=== PATIENT | male | born 1950 | race Caucasian/White ===

== ENCOUNTER → 2018-12-06 | Outpatient (CLI) | payer OTHER ==
[~2018-12-06] MED LIST: ALPRAZOLAM; AMBIEN; ASPIRIN; AVAPRO300 MG; AVODART0.5 MG; AZITHROMYCIN 2250 MG PO; CARDURA4 MG; CIPROFLOXACIN500 M1 PO; CLONIDINE; CRESTOR10 MG PO; DIABETA; DIABETA 5MG TABL5 MG; GABAPENTIN; GLUMETZA1000; HYDROCHLOROTHIA25 M2; LABETALOL HCL300 MG; LANTUS; LEXAPRO20 MG PO; LOSARTAN POTASS50 MG; LOW DOSE ASPIRI81 M1; METFORMIN; NEURONTIN600 MG; PAROXETINE HCL20 MG; PERCOCET 5-3251 EACH PO; PROPRANOLOL 4040 M1; VYTORIN 10-401 EACH; XANAX 0.25 MG0.25 MG; ZOCOR 10 MG TAB10 MG; [UNRECOGNIZED DRUG - REMARK]
== END ==
LOC: M.ULTRA 12:46
DX: M77.52 Other enthesopathy of left foot and ankle (principal); R60.0 Localized edema; M79.662 Pain in left lower leg; M79.89 Other specified soft tissue disorders; R09.89 Other specified symptoms and signs involving the circulatory and respiratory systems; R29.898 Other symptoms and signs involving the musculoskeletal system

== ENCOUNTER → 2019-07-30 | Outpatient (CLI) | payer MEDICARE | LOC: M.RAD 12:27 | DX: M19.011 Primary osteoarthritis, right shoulder (principal); M25.512 Pain in left shoulder; M79.632 Pain in left forearm; I51.7 Cardiomegaly; J90 Pleural effusion, not elsewhere classified; J18.8 Other pneumonia, unspecified organism; M79.672 Pain in left foot ==

== ENCOUNTER → 2019-08-21 | Outpatient (CLI) | payer OTHER ==
[2019-08-21 16:12] LABS: ABSOLUTE BASOPHILS 0.1 thou/uL (0.0-0.2); ABSOLUTE EOSINOPHILS 0.1 thou/uL (0.0-0.7); ABSOLUTE LYMPHOCYTES 1.8 thou/uL (0.8-5.3); ABSOLUTE MONOCYTES 0.4 thou/uL (0.0-1.2); ABSOLUTE NEUTROPHILS 2.6 thou/uL (1.6-8.1); BASOPHILS 1.3 %; EOSINOPHILS 2.5 %; HEMATOCRIT 33.3 % (42.0-52.0); HEMOGLOBIN 11.5 gm/dL (14.0-18.0); LYMPHOCYTES 35.9 %; MCHC 34.5 g/dL (28.0-37.0); MPV 10.2 fl. (7.2-11.1); NUCLEATED RBCS 0 /100WBC; PLATELET COUNT* 133 thou/uL (150-400); POLYS 52.3 %; RBC 3.82 mil/uL (4.50-6.00); RDW-CV 14.4 % (10.5-14.5); WBC 4.9 thou/uL (4.0-11.0)
[2019-08-21 16:20] LABS: CALCIUM 7.9 mg/dL (8.5-10.1); CREATININE 1.8 mg/dL (0.6-1.3); POTASSIUM 4.2 mmol/L (3.5-5.1)
== END ==
LOC: M.LAB 15:12
PROVIDERS: Family Medicine
DX: J18.9 Pneumonia, unspecified organism (principal); D64.9 Anemia, unspecified; N28.9 Disorder of kidney and ureter, unspecified

== ENCOUNTER 2019-11-28 13:39 | Inpatient (IN) | payer OTHER ==
[~2019-11-28] VITALS: Ht 175.3 cm; Wt 103.2 kg
[2019-11-28 13:46] VITALS: BP 133/59
[2019-11-28 14:41] LABS: ABSOLUTE BASOPHILS 0.1 thou/uL (0.0-0.2); ABSOLUTE EOSINOPHILS 0.3 thou/uL (0.0-0.7); ABSOLUTE LYMPHOCYTES 1.2 thou/uL (0.8-5.3); ABSOLUTE MONOCYTES 0.6 thou/uL (0.0-1.2); ABSOLUTE NEUTROPHILS 3.7 thou/uL (1.6-8.1); BASOPHILS 1.2 %; EOSINOPHILS 4.5 %; HEMATOCRIT 25.8 % (42.0-52.0); HEMOGLOBIN 8.9 gm/dL (14.0-18.0); LYMPHOCYTES 21.2 %; MCH 29.7 pg (26.0-34.0); MCHC 34.7 g/dL (28.0-37.0); MCV 85.6 fL (80.0-100.0); NUCLEATED RBCS 0 /100WBC; PLATELET COUNT* 222 thou/uL (150-400); POLYS 63.1 %; RBC 3.01 mil/uL (4.50-6.00); RDW-CV 14.4 % (10.5-14.5); WBC 5.9 thou/uL (4.0-11.0)
[2019-11-28 14:43] LABS: CALCIUM 8.1 mg/dL (8.5-10.1); CREATININE 2.7 mg/dL (0.6-1.3)
[2019-11-28 14:48] LABS: INR 1.1; PROTIME 11.3 Seconds (9.20-11.50)
[2019-11-28 14:50] LABS: URINE BILIRUBIN NEGATIVE (Negative); URINE BLOOD NEGATIVE (Negative); URINE CLARITY CLEAR; URINE COLOR YELLOW; URINE GLUCOSE-RANDOM NEGATIVE (Negative); URINE KETONES NEGATIVE (Negative); URINE LEUKOCYTES-REFLEX NEGATIVE (Negative); URINE NITRITE-REFLEX NEGATIVE (Negative); URINE PROTEIN 1+ (Negative); URINE SPECIFIC GRAVITY 1.025 (1.005-1.030); URINE UROBILINOGEN 0.2 E.U./dl (0.2-1.0)
[2019-11-28 14:54] LABS: ALBUMIN 3.3 g/dL (3.4-5.0); TOTAL BILIRUBIN 0.3 mg/dL (<0.1-1.0)
[2019-11-28 14:57] LABS: AMP/METHAMP Negative (Negative); BARBITURATES POSITIVE (Negative); BENZODIAZEPINES Negative (Negative); COCAINE Negative (Negative); METHADONE Negative (Negative); OPIATES Negative (Negative); PCP Negative (Negative); THC Negative (Negative)
[2019-11-28] MEDS ORDERED: CELEXA40 MG PO (15:15)
[2019-11-28] MEDS ORDERED: PLAVIX 75 MG TA75 MG PO (15:15)
[2019-11-28] MEDS ORDERED: HYTRIN 2MG CAPSU2 M1 PO (15:16)
[2019-11-28] MEDS ORDERED: DESYREL150 MG PO (15:16)
[2019-11-28] MEDS ORDERED: DYMISTA NASAL S23 GM NASAL (15:18)
[2019-11-28] MEDS ORDERED: LEVEMIR FL100 UNIT/2 SUBQ (15:18)
[2019-11-28] MEDS ORDERED: SPIRONOLACTONE25 MG PO (15:19)
[2019-11-28] MEDS ORDERED: VITAMIN D325 MC5 PO (15:19)
--- NOTE | 2019-11-28 15:19 | EKG ---
[place] [address] ELECTROCARDIOGRAM REPORT Name: DAIANA ROBERSON Room: [facility]#: [id number] Admission: 11/28/19 Attend Phys: Discharge: Date of : 52 Date of Service: 11/28/19 1349 Report #: [id number] THIS REPORT FOR: //name// [facility] ED Test Date: 2019-11-28 Test Time: 13:49:13 Pat Name: DAIANA ROBERSON Department: Room: Gender: M White Sourer: LISA : 1950 Requested By: Kinga Nunez Order Number: [id number] MD: Andrew Valiente Measurements Intervals [place] Rate: 75 P: 68 MO: 152 QRS: 4 QRSD: 94 T: 91 QT: 447 QTc: 500 Interpretive Statements Sinus rhythm Multiple ventricular premature complexes Borderline low voltage, extremity leads Nonspecific T abnormalities, lateral leads Borderline prolonged QT interval Compared to ECG 07/08/2011 14:31:00 Ventricular premature complex(es) now present T-wave abnormality now present Electronically Signed On 11-28-2019 15:17:40 CDT by Andrew Valiente [email or web address] <ELECTRONICALLY SIGNED> By: Andrew Valiente MD, [facility] 11/28/19 1517 1349 1349 Andrew Valiente MD, [facility] /EPI
[2019-11-28] MEDS ORDERED: PRIMIDONE 250M250 MG PO (15:20)
[2019-11-28] MEDS ORDERED: NOVOLOG FL100 UNIT/M SUBQ (15:20)
[2019-11-28] MEDS ORDERED: MINOXIDIL10 MG PO (15:21)
[2019-11-28] MEDS ORDERED: ZESTRIL20 MG PO (15:21)
[2019-11-28] MEDS ORDERED: KEPPRA XR750 MG PO (15:22)
[2019-11-28] MEDS ORDERED: FUROSEMIDE 40 M40 MG PO (15:22)
[2019-11-28] MEDS ORDERED: NEURONTIN 400M400 M2 PO (15:22)
[2019-11-28] MEDS ORDERED: CARVEDILOL25 MG PO (15:22)
[2019-11-28] MEDS ORDERED: CLONAZEPAM 0.50.5 M1 PO (15:22)
[2019-11-28] MEDS ORDERED: DRIZALMA SPRINK30 MG PO (15:23)
[2019-11-28] MEDS ORDERED: CRESTOR40 MG PO (15:23)
[2019-11-28] MEDS ORDERED: ASA81BEC PO (15:23)
[2019-11-28 20:00] VITALS: BP 163/69
--- NOTE | 2019-11-28 20:04 | NUR ---
SPOKE WITH DR ROBLES; PER DR ROBLES SHE ORDERED FOR COVID TESTING TO BE CANCELLED; PT TO BE ADMITTED TO [facility]
[2019-11-28 20:16] VITALS: BP 146/66
[2019-11-28] MEDS ORDERED: TRAZODONE HCL100 MG PO (21:48)
[2019-11-28 22:04] VITALS: BP 170/58
[2019-11-29 00:14] VITALS: BP 154/42
[2019-11-29 04:17] VITALS: BP 116/41
[2019-11-29 05:08] LABS: GLYCOHEMOGLOBIN (HGB A1C) 6.5 % (4.8-5.6)
[2019-11-29 05:19] LABS: HEMATOCRIT 25.3 % (42.0-52.0); HEMOGLOBIN 8.8 gm/dL (14.0-18.0); MCH 29.9 pg (26.0-34.0); MCV 85.5 fL (80.0-100.0); RBC 2.95 mil/uL (4.50-6.00); RDW-CV 14.2 % (10.5-14.5); WBC 5.6 thou/uL (4.0-11.0)
[2019-11-29 05:23] LABS: CALCIUM 7.8 mg/dL (8.5-10.1); CREATININE 2.5 mg/dL (0.6-1.3); POTASSIUM 3.6 mmol/L (3.5-5.1)
[2019-11-29 05:27] LABS: ALBUMIN 2.7 g/dL (3.4-5.0); MAGNESIUM 2.1 mg/dL (1.8-2.4); TOTAL BILIRUBIN 0.2 mg/dL (<0.1-1.0)
--- NOTE | 2019-11-29 05:50 | NUR ---
patient denies pain and discomfort. has some shortness of air on exertion and for that reason, remains on 2l o2 nc. 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 up with assist x1 to BSC. call light within reach
[2019-11-29 08:00] VITALS: BP 128/58
--- NOTE | 2019-11-29 11:26 | 2DMMODE ---
[place] [address] 2 D/M-MODE ECHOCARDIOGRAM Name: DAIANA ROBERSON Room: [address] IN .R.#: [id number] Admission: 11/28/19 Attend Phys: Nereyda Fuentes, Discharge: Date of : 52 Date of Service: 11/29/19 1124 Report #: [id number] THIS REPORT FOR: cc: Romi Diaz MD, Katrina MD Holkins,Andrew Denney MD [facility] ~ APPROVED REPORT Study performed: 11/28/2019 16:36:11 EXAM: Comprehensive 2D, Doppler, and color-flow Echocardiogram Patient Location: In-Patient Room #: er BSA: 2.07 HR: 90 bpm BP: 141/58 mmHg Rhythm: NSR Indications Pleural Effusion 2D Dimensions IVSd: 15.16 (7-11mm) LVOT Diam: 20.25 (18-24mm) LVDd: 52.91 mm PWd: 11.99 (7-11mm) Ascending Ao: 31.20 (22-36mm) LVDs: 32.49 (25-40mm) Aortic Root: 31.03 mm Volumes Left Atrial Volume (Systole) LA ESV Index: 45.00 mL/m2 Aortic Valve AoV Peak Latrell.: 1.71 m/s AO Peak Gr.: 11.71 mmHg LVOT Max P.00 mmHg AO Mean Gr.: 6.50 mmHg LVOT Mean P.61 mmHg LVOT Max V: 0.87 m/s AO V2 VTI: 39.49 cm LVOT Mean V: 0.59 m/s PENNY (VTI): 1.81 cm2 LVOT V1 VTI: 22.18 cm AI [place]: 4.70 m/s2 AI PHT: 251.77 [place] [address] 2 D/M-MODE ECHOCARDIOGRAM Name: DAIANA ROBERSON Room: [address] IN .R.#: [id number] Admission: 11/28/19 Attend Phys: Nereyda Fuentes, Discharge: Date of : 52 Date of Service: 11/29/19 1124 Report #: [id number] E/A Ratio: 1.43 MV Decel. Time: 151.25 ms MV E Max Latrell.: 1.23 m/s MV PHT: 43.86 ms MVA (PHT): 5.02 cm2 TDI E/Lateral E': 15.38 E/Medial E': 17.57 Medial E' Latrell.: 0.07 m/s Lateral E' Latrell.: 0.08 m/s Pulmonary Valve PV Peak Latrell.: 0.84 m/s PV Peak Gr.: 2.82 mmHg Tricuspid Valve RAP Estimate: 5.00 mmHg TR Peak Gr.: 42.49 mmHg RVSP: 47.00 mmHg PA Pressure: 47.00 mmHg Left Ventricle The left ventricle is normal size. There is normal LV segmental wall motion. Mild concentric left ventricular hypertrophy. Left ventricular systolic function is normal. The left ventricular ejection fraction is within the normal range. LVEF is 55%. The left ventricular diastolic function is normal. Right Ventricle The right ventricle is normal size. The right ventricular systolic function is normal. Atria Left atrium is moderately dilated. The right atrium size is normal. Aortic Valve Mild aortic valve sclerosis. Moderate aortic regurgitation. No hemodynamically significant valvular aortic stenosis. Mitral Valve The mitral valve is normal in structure. Moderate mitral regurgitation. No evidence of mitral valve stenosis. Tricuspid Valve The tricuspid valve is normal in structure. Mild tricuspid regurgitation. [place] [address] 2 D/M-MODE ECHOCARDIOGRAM Name: DAIANA ROBERSON Ana Room: [address] IN [facility]#: [id number] Admission: 11/28/19 Attend Phys: Nereyda Fuentes, Discharge: Date of : 52 Date of Service: 11/29/19 1124 Report #: [id number] Pulmonic Valve The pulmonary valve is normal in structure. Trace pulmonic regurgitation. Great Vessels The aortic root is normal in size. IVC is normal in size and collapses >50% with inspiration. Pericardium Mild circumferential pericardial effusion. <Conclusion> The left ventricle is normal size. Mild concentric left ventricular hypertrophy. Left ventricular systolic function is normal. The left ventricular ejection fraction is within the normal range. LVEF is 55%. The left ventricular diastolic function is normal. The right ventricle is normal size. Left atrium is moderately dilated. The right atrium size is normal. Mild aortic valve sclerosis. Moderate aortic regurgitation. No hemodynamically significant valvular aortic stenosis. The mitral valve is normal in structure. Moderate mitral regurgitation. No evidence of mitral valve stenosis. The tricuspid valve is normal in structure. Mild tricuspid regurgitation. Moderate pulmonary hypertension. IVC is normal in size and collapses >50% with inspiration. Mild circumferential pericardial effusion. There is normal LV segmental wall motion. <ELECTRONICALLY SIGNED> By: Andrew Valiente MD, FACC 11/29/19 1124 1124 1124 Andrew Valiente MD, FACC /INF
--- NOTE | 2019-11-29 12:55 | NUR ---
ASSUMED PT CARE AT 0730, PT RESTING IN BED, SATTING 94% ON 1.5L, TRACING SR W/ PVC'S ON THE SPINNING SUPERVISOR AND HAD NO C/O PAIN OR SHORTNESS OF BREATH. PT COMMUNICATES UNDERSTANDING OF CARE PLAN AND MEDS BUT SOMETIMES FORGETS TEACHING. PT HAD RT BKA AND HAS PROSTHETIC IN THE ROOM, HE IS UP W/ ASSIST TO THE BEDSIDE COMODE. PT GOAL IS TO GET A SPUTUM SAMPLE COLLECTED, INCREASE ACTIVITY AND DECREASE EXCESS FLUID VOLUME. AM ASSESSMENT CHARTED, MEDS PER SEP, HOURLY ROUNDING OBSERVED, BED IN LOW POSITION, BED ALARM ON, CALL LIGHT W/IN REACH, WILL CONTINUE POC.
[2019-11-29 13:12] VITALS: BP 126/44
[2019-11-29 16:44] VITALS: BP 116/39
--- NOTE | 2019-11-29 17:58 | NUR ---
NO ACUTE CHANGES THROUGHOUT SHIFT, PT WORKED W/ PT TODAY AND GOT UP TO CHAIR. NEURO CONSULTED FOR AMS AND MRI ORDERED BY DR. ROBLES AND CONFIRMED BY DR. LEDESMA. PT'S SON AND DPOA, DEREK, CALLED FOR MRI, CONSENT GIVEN BY HIM. BROWN CATHETER W/ TEMP PROBE REMOVED PER MRI PROTOCOL AND NEW 16 THAI BROWN CATHETER PLACED UPON RETURN TO THE UNIT. CATHETER IS IN PLACE FOR URINARY RTN. SON, DEREK, CONSULTED ABOUT PT HOME MEDS. DEREK STATES PT "BECOMES ANGRY, AGGRESSIVE AND SUICIDAL IF CYMBALTA IS DC'D". DEREK ALSO STATES HE IS BRINGING UP 2 HOME MEDS PER PT. HOURLY ROUNDING OBSERVED, BED IN LOW POSITION, BED ALARM ON, CALL LIGHT W/IN REACH, MED PER SEP, WILL CONTINUE POC
[2019-11-29 19:50] VITALS: BP 125/69
[2019-11-30 00:33] VITALS: BP 177/60
[2019-11-30 04:15] LABS: ABSOLUTE BASOPHILS 0.1 thou/uL (0.0-0.2); ABSOLUTE EOSINOPHILS 0.2 thou/uL (0.0-0.7); ABSOLUTE LYMPHOCYTES 1.7 thou/uL (0.8-5.3); ABSOLUTE MONOCYTES 0.6 thou/uL (0.0-1.2); BASOPHILS 1.1 %; EOSINOPHILS 3.7 %; HEMATOCRIT 25.3 % (42.0-52.0); HEMOGLOBIN 8.7 gm/dL (14.0-18.0); MCH 29.7 pg (26.0-34.0); MCHC 34.4 g/dL (28.0-37.0); MCV 86.2 fL (80.0-100.0); MONOCYTES 10.3 %; MPV 9.7 fl. (7.2-11.1); NUCLEATED RBCS 0 /100WBC; PLATELET COUNT* 200 thou/uL (150-400); POLYS 53.9 %; RBC 2.94 mil/uL (4.50-6.00); RDW-CV 14.5 % (10.5-14.5); WBC 5.6 thou/uL (4.0-11.0)
[2019-11-30 04:36] VITALS: BP 136/32
--- NOTE | 2019-11-30 05:50 | NUR ---
VSS. SEE MAR. SEE CHARTING. FALL PRECAUTIONS IN PLACE. HOURLY ROUNDING FOR SAFETY.
[2019-11-30 07:54] VITALS: BP 162/50
[2019-11-30 12:15] VITALS: BP 159/64
--- NOTE | 2019-11-30 14:05 | NUR ---
ASSUMED PT CARE AT 0730, PT RESTING IN BED, SATTING 95% ON 2L, TRACING SR W/ PVC'S ON THE CIRCUIT BREAKER MECHANIC AND C/O CHEST PAIN THAT HE STATES IS FROM COUGHING. HE REQUESTED A BREATHING TREATMENT, RT CONSULTED AND ACCOMPLISHED THIS W/ HIM. BROWN IN PLACE FOR URINARY RTN. PT HAS PROSTHETIC LEG IN ROOM R/T RT BKA. PT GOAL IS TO INCREASE ACTIVITY AND REMAIN FREE FROM FURTHER CHEST PAIN. AM ASSESSMENT CHARTED, MEDS PER MAR, HOURLY ROUNDING OBSERVED, BED IN LOW POSITION, BED ALARM ON, CALL LIGHT W/IN REACH, WILL CONTINUE POC.
[2019-11-30 17:13] VITALS: BP 177/61
--- NOTE | 2019-11-30 18:02 | NUR ---
NO ACUTE CHANGES THROUGHOUT SHIFT, PT CONTINUES TO HAVE BROWN IN PLACE W/ DARK YELLOW URINE DRAINING. PT CONTINUES TO SAT MID 90'S ON 2L AND TRACE SR W/ PVC'S ON THE SYRUP SHED SUPERVISOR. PT PROGRESSING TOWARDS GOALS AND GOT UP TO THE BATHROOM TODAY, NO FURTHER C/O CHEST PAIN. MEDS PER SEP, HOURLY ROUNDING OBSERVED, BED IN LOW POSITION, BED ALARM ON, CALL LIGHT W/IN REACH, WILL CONTINUE POC.
[2019-11-30 20:00] VITALS: BP 158/68
[2019-12-01] VITALS: BP 135/52
[2019-12-01 04:00] VITALS: BP 162/73
--- NOTE | 2019-12-01 04:30 | NUR ---
PT ALERT ORIENTED. PT INAPPROPRIATE AT TIMES. FOELY WITH CLEAR YELLOW. O2 AT 2 LITERS NC. PT TELEMETRY SHOWS SR FREQUENT PACS.
[2019-12-01 08:00] VITALS: BP 188/65
[2019-12-01 11:49] LABS: BE -1.6 mmol/L (-2 to +3); PCO2 43.5 mmHg (35.0-45.0); pH 7.357 (7.340-7.450)
[2019-12-01 11:53] LABS: PO2 57.7 mmHg (75.0-100.0)
[2019-12-01 12:00] VITALS: BP 119/62
--- NOTE | 2019-12-01 15:55 | NUR ---
CM spoke with Pt's son via phone. Pt resides at home with his son. Independent with ADLs, son completes IADLS. Pt has a walker for mobility. Pt had a BKA 1-2 years ago and wears a prothesis. Hx of HH. No hx of SNF. Covid negative. Per Dr, anticipate that Pt will be medically stable to dc later this week, Dr recommending a skilled stay. Son in agreement with skilled at dc, if its needed. CM to continue to try to reach Pt via phone to discuss dispo. Following.
[2019-12-01 16:00] VITALS: BP 147/57
--- NOTE | 2019-12-01 18:52 | NUR ---
VSS, A&OX4 BUT CONFUSED, SR WITH PVCS ON TELE, BROWN CATHETER, RIGHT BKA, UP WITH ONE TO PIVOT TO COMMODE AND CHAIR, HOURLY ROUNDING PERFORMED, POSSESSIONS AND CALL LIGHT WITHIN REACH.
[2019-12-01 19:47] VITALS: BP 176/65
[2019-12-02] VITALS: BP 118/45
[2019-12-02 04:00] VITALS: BP 118/61
--- NOTE | 2019-12-02 05:17 | NUR ---
PATIENT PROGRESSING TOWARDS GOALS: O2 SATURATION MAINTAINED ON 4L O2 NC. PATIENT DENIES PAIN AND DISCOMFORT. UP TO BEDSIDE COMMODE WITH ASSIST X1 AND PROSTHESIS. BROWN REMAINS IN PLACE TO DD. CALL LIGHT WITHIN REACH
[2019-12-02 06:45] LABS: HEMATOCRIT 24.8 % (42.0-52.0); HEMOGLOBIN 8.6 gm/dL (14.0-18.0); MCH 29.8 pg (26.0-34.0); MCHC 34.9 g/dL (28.0-37.0); MCV 85.5 fL (80.0-100.0); MPV 9.9 fl. (7.2-11.1); RBC 2.9 mil/uL (4.50-6.00); RDW-CV 14.4 % (10.5-14.5); WBC 5.1 thou/uL (4.0-11.0)
[2019-12-02 07:02] LABS: ALBUMIN 2.7 g/dL (3.4-5.0); CALCIUM 7.6 mg/dL (8.5-10.1); CREATININE 2.2 mg/dL (0.6-1.3); TOTAL BILIRUBIN 0.3 mg/dL (<0.1-1.0); TOTAL PROTEIN 5.9 g/dL (6.4-8.2)
[2019-12-02 08:00] VITALS: BP 136/53
--- NOTE | 2019-12-02 11:35 | CON ---
[address] [address] CONSULTATION Name: DAIANA ROBERSON Room: [address] IN M.R.#: [id number] Admission: 11/28/19 Attend Phys: Nereyda Fuentes MD Discharge: Date of : 52 Report #: [id number] THIS REPORT FOR: //name// cc: Romi Diaz MD, Katrina MD ~ THIS REPORT FOR: //name// CC: Romi Fuentes DATE OF SERVICE: 12/01/2019 REQUESTING PHYSICIAN: Dr. Fuentes. REASON FOR CONSULTATION: Acute kidney injury on top of the chronic kidney disease. HISTORY OF PRESENT ILLNESS: The patient is a 69-year-old gentleman admitted to the hospital on 11/28/2019 with complaints of altered mental status. The patient has been evaluated by Neurology, saw the patient yesterday. Her assessment was encephalopathy, which is improving and give diagnosis were depression, possible dementia or medications associated with pneumonia and UTI. PAST MEDICAL HISTORY: Significant for: 1. Chronic kidney disease stage 3. 2. History of hypertension. 3. Diabetes mellitus type 2. 4. Recurrent urinary tract infection. 5. Cardiomyopathy. 6. Dementia. FAMILY HISTORY: Noncontributory. SOCIAL HISTORY: Positive for hypertension and diabetes. REVIEW OF SYSTEMS: Unreliable. PHYSICAL EXAMINATION: GENERAL: Awake, but very limited engagement into the conversation. HEENT: Pupils are round. NECK: Supple. LUNGS: Decreased air movements. CARDIOVASCULAR: Regular rate. ABDOMEN: [place], [place] [address] CONSULTATION Name: DAIANA ROBERSON Room: [address] IN M.R.#: [id number] Admission: 11/28/19 Attend Phys: Nereyda Fuentes MD Discharge: Date of : 52 Report #: [id number] LOWER EXTREMITIES: Trace edema. LABORATORY DATA: Revealed hemoglobin of 8.7. Serum sodium 138, potassium 3.6, BUN 42, creatinine 2.5. Those are labs from 11/29/2019, I do not have any labs from yesterday or today. His baseline creatinine is around 1.8, 1.6. Creatinine on admission was 2.7 and on 11/29/2019 it was 2.5. ASSESSMENT: 1. Acute kidney injury likely due to infection process. I think he has pneumonia. 2. Chronic kidney disease stage 3. 3. Dementia. 4. Diabetes mellitus type 2. 5. Hypertension. PLAN: 1. Continue antibiotics per primary team. 2. I would prefer oral hydration and would not give him IV fluids and given the history of congestive heart failure and high level of BNP. We will also check renal ultrasound and labs in the morning. <ELECTRONICALLY SIGNED> By: Anand Patricio MD 12/02/19 1135 1144 [id number] MATEO Alves
[2019-12-02 12:00] VITALS: BP 126/50
--- NOTE | 2019-12-02 15:56 | NUR ---
Per , anticipate dc in 2 days. Pt may still need skilled, CM requested that PT/OT work with Pt to determine dispo. Following.
[2019-12-02 16:00] VITALS: BP 178/67
--- NOTE | 2019-12-02 18:50 | NUR ---
ASSUMED PT CARE REPORT RECEIVED FROM NURSE. PT IS AOX4. ON 2 L NC. DENIES PAIN. BUT COMPLAINS OF SOB WITH EXERTION. LUNG SOUNDS WHEEZY. NEW ORDER FOR LASIX. SEE EMAR. IV ABX GIVEN ORDERED. YANETH. KEVIN IN PLACE. CALL LIGHT AT REACH
[2019-12-02 19:58] VITALS: BP 144/51
[2019-12-02 21:56] LABS: HEMATOCRIT 28.3 % (42.0-52.0); HEMOGLOBIN 9.7 gm/dL (14.0-18.0); MCH 29.8 pg (26.0-34.0); MCHC 34.3 g/dL (28.0-37.0); MCV 86.8 fL (80.0-100.0); MPV 9.1 fl. (7.2-11.1); RBC 3.26 mil/uL (4.50-6.00); RDW-CV 14.5 % (10.5-14.5); WBC 4.8 thou/uL (4.0-11.0)
[2019-12-03] VITALS: BP 135/56
[2019-12-03 04:00] VITALS: BP 163/74
--- NOTE | 2019-12-03 06:48 | NUR ---
RECEIVED REPORT AND ASSUMED CARE OF PATIENT AT 1900. FULL ASSESSMENT COMPLETED CHARTED. VSS. NO ACUTE CHANGES. ALL ROUNDINGS COMPLETED, ALL NEEDS MET. CALL LIGHT AND PERSONAL ITEMS IN REACH.
[2019-12-03 07:58] VITALS: BP 180/71
--- NOTE | 2019-12-03 09:07 | NUR ---
ASSUMED CARE OF PT THIS AM AROUND 07- MICROBIOLOGICAL LABORATORY TECHNICIAN IN PLACE ORDERED, TRACING SR- UPON ASSESSMEN PT NOTED TO BE RESTING IN BED, WATCHING TV- PT A&O X3-4 WITH INTERMITENT CONF/FORGETFULLNESS- BROWN IN PLACE D/D CLEAR FABIANO URINE, CONT OF BOWEL- ASSIST X1 WITH TRANSFERS-VSS, O2 SAT 98% ON 4L VIA NC UPPER LOBES NOTED TO BE CLEAR, CRACKLES TO BASES- DYSPNEA NOTED ON EXERTION- ABD SOFT/ROUND/NO-TENDER, BS X4 QUADS- LAST BM REPORTED 12/02/19-FAIR PO INTAKE NOTED THIS AM WITH BREAKFAST, BS MONITORED ORDERED- IV NOTED TO LEFT FA INTACT, IV ABT INFUSSING PRESCRIBED- R BKA NOTED- LLE 2+ EDEMA- PT DENIES ANY C/O PAIN/DISCOMFORT AT THIS TIME- CALL LIGHT AND PERSONAL BELONGINGS WITH IN REACH- HOURLY ROUNDS IN PLACE R/T SAFETY/NEEDS- ALL NEEDS MET AT THIS TIME-WCTM
[2019-12-03 12:14] VITALS: BP 130/48
--- NOTE | 2019-12-03 15:16 | NUR ---
Per PT, Pt can dc home.
[2019-12-03 16:12] VITALS: BP 161/56
[2019-12-03 21:07] LABS: CALCIUM 7.5 mg/dL (8.5-10.1); POTASSIUM 4.4 mmol/L (3.5-5.1); TOTAL BILIRUBIN 0.2 mg/dL (<0.1-1.0); TOTAL PROTEIN 5.9 g/dL (6.4-8.2)
[2019-12-04] VITALS: BP 140/55
[2019-12-04 04:00] VITALS: BP 130/44
--- NOTE | 2019-12-04 05:43 | NUR ---
RECEIVED REPORT AND ASSUMED CARE OF PT AT 1900. VSS. NO ACUTE CHANGES THROUGHOUT SHIFT. ALL ROUNDINGS COMPLETED, ALL NEEDS MET, FULL ASSESSMENT COMPLETED CHARTED. PT EXPRESSED DESIRE TO BE OUT OF HIS ROOM AND USE HIS WHEELCHAIR IN THE HALLWAY, RN ASSISTED AND MONITORED IN USING WHEELCHAIR IN HALLWAY.
[2019-12-04 05:49] LABS: HEMATOCRIT 25.5 % (42.0-52.0); HEMOGLOBIN 8.7 gm/dL (14.0-18.0); MCH 29.4 pg (26.0-34.0); MCHC 34.1 g/dL (28.0-37.0); MPV 9.5 fl. (7.2-11.1); RBC 2.96 mil/uL (4.50-6.00); RDW-CV 14.8 % (10.5-14.5); WBC 5.2 thou/uL (4.0-11.0)
[2019-12-04 05:58] LABS: CALCIUM 7.7 mg/dL (8.5-10.1); CREATININE 1.8 mg/dL (0.6-1.3)
[2019-12-04 08:00] VITALS: BP 150/46
[2019-12-04 12:00] VITALS: BP 139/49
--- NOTE | 2019-12-04 14:21 | NUR ---
CM spoke with director of rehabilitation and wellness, Pt likely will be an acute rehab candidate, pending PT seeing today. Per , Pt was drowsy today, anticipate that he may be medically stable to dc tomorrow.
[2019-12-04 16:00] VITALS: BP 177/74
--- NOTE | 2019-12-04 18:53 | NUR ---
ASSUMED PT CARE AT 0700, PT A&O X4, VSS, 2LPM VIA NC, SUSTAINABLE DESIGN COORDINATOR TRACING SINUS RHYTHM. UP WITH ASSIST X1, PROSTHETIC LEG, AND WALKER, BROWN PATENT AND DRAINING DARK YELLOW URINE WITH MINIMAL SEDIMENT. ACCUCHECKS AC AND HS, HOURLY ROUNDING COMPLETED.
[2019-12-04 20:00] VITALS: BP 143/77
[2019-12-05] VITALS (8 sets, daily range): BP systolic 143–229; BP diastolic 52–80
--- NOTE | 2019-12-05 05:25 | NUR ---
ASSSUMED PT CARE AT APPROX 1930. PT IS AWAKE AND ORIENTED X4. PT IS TRACING SR ON THE PARTS CLEANER. ASSESSMENT DONE AND CHARTED. PT DENIES PAIN/DISCOMFORT. NO ACUTE CHANGES OVERNIGHT. CALL LIGHT WITHIN REACH. HOURLY ROUNDING DONE FOR PT SAFETY. HIGH FALL PRECAUTIONS IN PLACE.
--- NOTE | 2019-12-05 11:46 | NUR ---
Rehab consulted. Awaiting decision to accept.
[2019-12-05 12:47] LABS: ABSOLUTE BASOPHILS 0.1 thou/uL (0.0-0.2); ABSOLUTE EOSINOPHILS 0.2 thou/uL (0.0-0.7); ABSOLUTE LYMPHOCYTES 1.1 thou/uL (0.8-5.3); ABSOLUTE MONOCYTES 0.5 thou/uL (0.0-1.2); ABSOLUTE NEUTROPHILS 2.6 thou/uL (1.6-8.1); BASOPHILS 1.5 %; EOSINOPHILS 4.9 %; HEMATOCRIT 27.1 % (42.0-52.0); HEMOGLOBIN 9.3 gm/dL (14.0-18.0); MCH 30.1 pg (26.0-34.0); MCHC 34.2 g/dL (28.0-37.0); MONOCYTES 10.9 %; MPV 9.2 fl. (7.2-11.1); NUCLEATED RBCS 0 /100WBC; PLATELET COUNT* 197 thou/uL (150-400); POLYS 57.7 %; RBC 3.08 mil/uL (4.50-6.00); WBC 4.5 thou/uL (4.0-11.0)
[2019-12-05 13:05] LABS: ALBUMIN 2.9 g/dL (3.4-5.0); CREATININE 1.9 mg/dL (0.6-1.3); POTASSIUM 4.3 mmol/L (3.5-5.1); TOTAL BILIRUBIN 0.3 mg/dL (<0.1-1.0); TOTAL PROTEIN 6.4 g/dL (6.4-8.2)
--- NOTE | 2019-12-05 13:20 | NUR ---
Pt in agreement with going to acute rehab, liaison to initiate auth. Son in agreement with POC. Pt medically stable to dc today.
--- NOTE | 2019-12-05 18:21 | NUR ---
PT VSS, A&OX4, IMPULSIVE AND FORGETFUL AT BASELINE, NSR ON TELE, NC@2L, RIGHT BKA, UP WITH ONE- PIVOTS TO CHAIR AND COMMODE WITH MODERATE ASSISTANCE, ACHS-ACCUCHECKS, HOURLY ROUNDING PERFORMED, POSSESSIONS AND CALL LIGHT WITHIN REACH, PATIENT WAITING FOR REHAB INSURANCE AUTHORIZATION, WILL BE ON UNIT UNTIL SUNDAY PENDING INSURANCE AUTH.
[2019-12-06 04:00] VITALS: BP 153/63
--- NOTE | 2019-12-06 05:19 | NUR ---
ASSUMED PT CARE AT APPROX 1930. PT IS AWAKE AND ORIENTED X4. PT IS TRACING SR ON THE TRACTOR EXPERT. PT C/O SOA AT APPROX 2200, spO2 WAS BETWEEN 88-90 ON 2L OF O2, LUNGS DIMINISHED AND COARSE, BP= 229/180, DR MCKEON INFORMED, ORDERS TO GIVE LASIX IV AND HYDRALAZINE IV GIVEN PER SEP, BREATHING TX ADMISINSTERED BY RT. PT VERBALIZED PARTIAL RELIEF AND WAS ABLE TO REST. REPEAT VITAL SIGNS CHARTED. WILL CONTINUE TO MONITOR PT CLOSELY.
--- NOTE | 2019-12-06 05:27 | NUR ---
ASSUMED PT CARE AT APPROX 1930. PT IS AWAKE AND ORIENTED X4. PT IS TRACING SR ON THE DIRECTOR OF GOVERNMENT SALES. PT C/O SOA AT APPROX 2200, spO2 WAS BETWEEN 88-90 ON 2L OF O2, LUNGS DIMINISHED AND COARSE, BP= 229/80, DR MCKEON INFORMED, ORDERS TO GIVE LASIX IV AND HYDRALAZINE IV GIVEN PER SEP, BREATHING TX ADMISINSTERED BY RT. PT VERBALIZED PARTIAL RELIEF AND WAS ABLE TO REST. REPEAT VITAL SIGNS CHARTED. WILL CONTINUE TO MONITOR PT CLOSELY.
[2019-12-06 08:00] VITALS: BP 182/75
[2019-12-06 10:53] LABS: CALCIUM 7.5 mg/dL (8.5-10.1); CREATININE 1.9 mg/dL (0.6-1.3); POTASSIUM 4.3 mmol/L (3.5-5.1)
[2019-12-06 12:00] VITALS: BP 149/64
--- NOTE | 2019-12-06 12:42 | NUR ---
Nutrition: Pt admitted with toxic encephalopathy. Seen for LOS. H/o HTN, OBE, CKD III, TOMASA, DMII. Pt asleep at time of visit, spoke with RN. Pt is on Chopped diet d/t pt's request b/c he has difficulty with meats and "tougher" foods. Labs: BG 17, A1c 6.5%, BUN 23, cr 1.9, alb 2.9, prealb 22.6. RX noted. Lasix today. Some edema in LLE. Wt was 214#, today is 224# bed wt. Continue with chopped diet, GOAL >75% of meals consumed. No other nutrition interventions needed at this time. Consider mild risk.
[2019-12-06 16:00] VITALS: BP 137/47
--- NOTE | 2019-12-06 19:30 | NUR ---
RECEIVED REPORT FROM MEI MOLINA. ASSUMED CARE OF PT AROUND 0730. PT A&O X4. FLAT AFFECT. SLEPT A LOT THIS SHIFT DESPITE ENCOURAGEMENT TO GET UP TO BEDSIDE CHAIR. AM ASSESSMENT AND VITALS COMPLETED CHARTED. RADIATION ONCOLOGIST IN PLACE CHARTED. MEDS PER EMAR. BROWN IN PLACE TO DD. APPETITE FAIR. SPOKE TO SON DEREK MULTIPLE TIMES THIS SHIFT, UPDATES GIVEN. PT ENCOURAGED TO USE IS AND FLUTTER. PT REMAINS ON 2L PER NC. PT CURRENTLY RESTING IN BED. CALL LIGHT IS WITHIN REACH. HOURLY ROUNDING PERFORMED. FALL PRECAUTIONS IN PLACE.
[2019-12-06 20:00] VITALS: BP 170/60
[2019-12-07] VITALS: BP 180/83
[2019-12-07 04:00] VITALS: BP 160/58
--- NOTE | 2019-12-07 05:28 | NUR ---
ASSUMED PT CARE AT APPROX 1930. PT IS AWAKE AND ORIENTED X4. PT IS TRACING SR ON THE ELECTRIC DRILL OPERATOR. ASSESSMENT DONE AND CHARTED. NO ACUTE CHANGES OVERNIGHT.NO DESATURATIONS NOTED ON 2L OF O2/NC. PT IS NOT IN RESPIRATORY DISTRESS, DENIES PAIN. CALL LIGHT WITHIN REACH. HIGH FALL PRECAUTIONS IN PLACE. HOURLY ROUNDING DONE FOR PT SAFETY.
[2019-12-07 05:56] LABS: CALCIUM 7.6 mg/dL (8.5-10.1); CREATININE 1.7 mg/dL (0.6-1.3); MAGNESIUM 2.1 mg/dL (1.8-2.4); POTASSIUM 4.7 mmol/L (3.5-5.1)
[2019-12-07 07:30] VITALS: BP 148/51
[2019-12-07 12:00] VITALS: BP 157/64
[2019-12-07 16:00] VITALS: BP 165/75
--- NOTE | 2019-12-07 18:00 | NUR ---
RECEIVED REPORT FROM DONTE MOLINA. ASSUMED CARE OF PT AROUND 0715. PT A&O X4. BLOW PIT HELPER IN PLACE TRACING CHARTED. AM ASSESSMENT AND VITALS COMPLETED CHARTED. MEDS PER EMAR. PT ABLE TO GET UP TO BEDSIDE CHAIR THIS SHIFT AND WAS ABLE TO AMBULATE TO BATHROOM WITH ASSITANCE X1 WITH WALKER AND PROSTHESIS. PT APPEARED IN BETTER SPIRITS TODAY THAN YESTERDAY. MORE OUTPUT THAN INPUT. BROWN IN PLACE TO DD, URINE YELLOW. PT DENIED PAIN THIS SHIFT. PT CURRENTLY RESTING IN BED WATCHING TV. CALL LIGHT IS WITHIN REACH. FALL PRECAUTIONS IN PLACE. HOURLY ROUNDING PERFORMED. SON CALLED AND UPDATE WAS GIVEN.
[2019-12-07 20:00] VITALS: BP 160/58
[2019-12-08] VITALS: BP 150/60
[2019-12-08 04:00] VITALS: BP 164/58
--- NOTE | 2019-12-08 04:48 | NUR ---
ASSUMED PT CARE AT APPROX 1930. PT IS AWAKE AND ORIENTED X4. PT IS TRACING SR ON THE POLLUTION CONTROL CHEMIST. PT DENIES PAIN/DISCOMFORT. NO DESATURATIONS NOTED ON 2L OF O2/NC. NO ACUTE CHANGES OVERNIGHT. CALL LIGHT WITHIN REACH. HOURLY ROUNDING DONE FOR PT SAFETY.
[2019-12-08 07:25] LABS: CALCIUM 7.9 mg/dL (8.5-10.1); CREATININE 1.9 mg/dL (0.6-1.3); MAGNESIUM 2.4 mg/dL (1.8-2.4); POTASSIUM 4.4 mmol/L (3.5-5.1)
[2019-12-08 08:01] VITALS: BP 146/49
--- NOTE | 2019-12-08 09:26 | NUR ---
ASSUMED CARE OF PT THIS AM AROUND 0715- SOLAR ENERGY SALES SPECIALIST IN PLACE ORDERED, TRACING SR- UPON ASSESSMENT PT NOTED TO BE RESTING IN BED- PT A&O X4, FORGETFULL- CONT OF BOWEL, BROWN IN PLACE D/D CLEAR FABIANO URINE- A X1 WITH TRANSFER AND PROSTHESIS TO [facility] R/T R-BKA- LCTA, DYSPNEA NOTED ON EXERTION- VSS, O2 SAT 96% ON 2L VIA NC- ABD SOFT/ROUND/NON-TENDER, BS X4 QUADS-GOOD PO INTAKE NOTED THIS AM WITH BREAKFAST, BS MONITORED ORDERED- LAST BM REPORTED 12/07/19- IV NOTED TO RIGHT WRIST INTACT AND SL-ORAL ABT PRESCRIBED- CHEST X-RAY ORDERED FOR THIS AM- PT DENIES ANY C/O PAIN/DISCOMFORT AT THIS TIME- CALL LIGHT AND PERSONAL BELONGINGS WITH IN REACH- HOURLY ROUNDS IN PLACE R/T SAFETY/NEEDS- ALL NEEDS MET AT THIS TIME-WCTM
[2019-12-08 12:00] VITALS: BP 142/53
[2019-12-08 16:00] VITALS: BP 149/50
--- NOTE | 2019-12-08 20:00 | NUR ---
RECEIVED REPORT AND ASSUMED CARE OF PT, ASSESSMENT COMPLETED. SITTING UP IN CHAIR WATCHING TV. O2 ON, NO SOB NOTED. WILL CONT TO MONITOR AND ASSIST NEEDED.
[2019-12-08 20:30] VITALS: BP 184/72
[2019-12-09 00:11] VITALS: BP 167/60
--- NOTE | 2019-12-09 07:45 | NUR ---
SLEPT WELL TONIGHT. ASSISTED TO BSC FOR BM X2. NO CHANGE IN ASSESSMENT. HS GOALS OF REST AND SAFETY ACHIEVED. HOURLY ROUNDING OBSERVED.
[2019-12-09 08:00] VITALS: BP 152/54
[2019-12-09] MEDS ORDERED: LEVALBUTER0.63 MG/3 INH (09:49)
[2019-12-09] MEDS ORDERED: MELATONIN5 M1 PO (09:49)
[2019-12-09] MEDS ORDERED: BENADRYL25 MG PO (09:50)
--- NOTE | 2019-12-09 15:30 | NUR ---
ACUTE REHAB UNIT ATTEMPTING TO GET INSURANCE AUTH FOR PT.TO COME TO REHAB. HE IS DOING WELL IN THERAPY AND ARE CONCERNED THAT PT.MAY NOT QUALIFY PER INSURANCE TO GO TO REHAB. LEFT VM ON SON'S PHONE REGARDING THIS POSSIBILIYT AND THAT WE WOULD NEED TO COME UP WITH ANOTHER PLAN IF INSURANCE DID DENY. WILL CALL SON BACK IN AM.
[2019-12-09 17:27] VITALS: BP 169/64
--- NOTE | 2019-12-09 17:40 | NUR ---
PT. AOX4, VSS, PAIN UNDER CONTROL. PT. OUT OF BED TO CHAIR MULTIPLE TIMES THROUGHOUT THE DAY WITH AND WITHOUT PROSTHESIS, USING WALKER AND 2 PERSON ASSIST. TOP AND SEAT COVER FITTER IN CONTACT WITH FAMILY AND REGARDING REHAB PLACEMENT. PT. CURRENTLY IN BED SLEEPING. NO APPARENT SIGNS OF DISTRESS. HOURLY ROUNDING PERFORMED. CALL LIGHT AND PERSONAL BELONGINGS PLACED WITHIN REACH.
[2019-12-09 21:20] VITALS: BP 177/74
[2019-12-10] VITALS: BP 131/46
[2019-12-10 07:06] LABS: HEMATOCRIT 25.1 % (42.0-52.0); HEMOGLOBIN 8.8 gm/dL (14.0-18.0); MCH 30.5 pg (26.0-34.0); MCHC 34.8 g/dL (28.0-37.0); MCV 87.5 fL (80.0-100.0); MPV 9.6 fl. (7.2-11.1); RBC 2.87 mil/uL (4.50-6.00); WBC 4.7 thou/uL (4.0-11.0)
[2019-12-10 07:17] LABS: ALBUMIN 2.9 g/dL (3.4-5.0); CALCIUM 7.6 mg/dL (8.5-10.1); CREATININE 1.7 mg/dL (0.6-1.3); MAGNESIUM 2.2 mg/dL (1.8-2.4); POTASSIUM 4.2 mmol/L (3.5-5.1); TOTAL BILIRUBIN 0.3 mg/dL (<0.1-1.0); TOTAL PROTEIN 6.4 g/dL (6.4-8.2)
--- NOTE | 2019-12-10 07:52 | NUR ---
PATIENT HAS RESTED WELL THROUGHOUT MOST OF THE NIGHT. VSS ON 2L 02 VIA NASAL CANNULA. PATIENT HAD C/O SOA EARLIER IN THE NIGHT. NOTIFIED AND NEW ORDERS GIVEN. LUNGS ARE DIMINISHED WITH SLIGHT WHEEZES HEARD. MEDICATIONS GIVEN ORDERED AND CHARTED. IV IN RIGHT HAND-SL. IV ABT GIVEN WITHOUT ANY ADVERSE SIDE EFFECTS NOTED. PATIENT INSTRUCTED TO USE CALL LIGHT WHEN NEEDING ASSISTANCE. HOURLY ROUNDS MADE. WILL CONTINUE WITH PLAN OF CARE AND NURSING TO MONITOR.
[2019-12-10 08:00] VITALS: BP 141/63
--- NOTE | 2019-12-10 10:24 | NUR ---
INSURANCE CO. DENIED AUTH FOR ACUTE INPT.REHAB. WILL DO A PEER-PEER REVIEW TODAY.
--- NOTE | 2019-12-10 12:17 | CON ---
[address] [address] CONSULTATION Name: DAIANA ROBERSON Room: [address] IN M.R.#: [id number] Admission: 11/28/19 Attend Phys: Nereyda Fuentes MD Discharge: Date of : 52 Report #: [id number] THIS REPORT FOR: //name// cc: Romi Diaz MD, Katrina MD ~ THIS REPORT FOR: //name// CC: Romi Fuentes DATE OF SERVICE: 12/09/2019 INFECTIOUS DISEASE CONSULTATION ATTENDING PHYSICIAN: Antione Saini MD REASON FOR EVALUATION: The patient with multifactorial pneumonitis with infectious component, was felt to be likely perhaps due to MRSA. HISTORY OF PRESENT ILLNESS: Chart reviewed, the patient examined. 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 He was admitted on 11/28/2019 through the Emergency Room with complaints of progressive encephalopathy and dyspnea of 1 day's duration. He is also noted to be extremely weak. Initial evaluation showed a chest x-ray with enlargement of the cardiac silhouette without evidence of pulmonary edema, right lower lobe opacities, a tpele-ln-msvrlaiw pleural effusion, small left lower lobe opacities as well as question of pneumonitis. He did undergo MRI of the head as well, which showed no acute intracranial process. He had blood cultures collected, which were sterile. He was found to have acute injury with creatinine 2.7 that subsequently trended down to 1.9. LFTs were otherwise unremarkable. TSH was borderline elevated. White count has been normal throughout. COVID testing was negative. He did have a positive MRSA surveillance PCR. Urinalysis did show marked pyuria with hematuria, although there is no urine culture done. He has been on combination therapy up until recently with vancomycin, piperacillin, and tazobactam. He was transitioned to cefuroxime as well as linezolid; however, there was a concern about possible drug-drug interactions, including citalopram, trazodone, clonazepam. On questioning today, he is lethargic. He does arouse. He is somewhat uninterested in talking to me. He notes he generally does not feel well. He is on supplemental oxygen per nasal cannula. He does admit to intermittent coughing. He is not aware of any fevers or chills. He states that his appetite has been diminished, although he denies any significant [place] [address] CONSULTATION Name: DAIANA ROBERSON Room: [address] IN .R.#: [id number] Admission: 11/28/19 Attend Phys: Nereyda Fuentes MD Discharge: Date of : 52 Report #: [id number] ALLERGIES: LISTED TO CODEINE. CURRENT MEDICINES: Include diphenhydramine, spironolactone, furosemide, citalopram, vancomycin, trazodone, duloxetine, famotidine, levetiracetam, minoxidil, levalbuterol, aspirin, cholecalciferol, clopidogrel, melatonin, gabapentin, insulin lispro, enoxaparin, atorvastatin, carvedilol, primidone, terazosin. PAST MEDICAL HISTORY: Includes depression, anxiety, diabetes mellitus type 2, has known cardiomyopathy, history of hypertension, seizures. SOCIAL HISTORY: Occasional ethanol. No illicit drug use. Nonsmoker of cigarettes. FAMILY HISTORY: Noncontributory. REVIEW OF SYSTEMS: Limited to the above. PHYSICAL EXAMINATION: GENERAL: He is lying in a left lateral decubitus position. He does rollover briefly for an exam. Enpv-gr-ottpetht distress. Appears somewhat chronically ill, undernourished. VITAL SIGNS: Temperature 97.7, pulse 74, respirations 18, blood pressure 152/54. SKIN: Warm, dry, no rashes. HEENT: Normocephalic. Extraocular muscles intact. NECK: Supple. LUNGS: Few scattered coarse breath sounds, diminished on the right side. HEART: Regular. I do not appreciate murmur. ABDOMEN: Soft, mildly distended. There are no peritoneal signs. GENITOURINARY AND RECTAL: Deferred. LABORATORY DATA: Most recent chest x-ray: A little changed, moderate right and small left pleural effusions, bibasilar opacities without certainty of whether there is a component of infection. Electrolytes: Sodium 138, potassium 4.4, chloride 104, bicarb is 29, anion gap of 5, BUN and creatinine 26 and 1.9, glucose of 77. Estimated GFR of 35. Liver function tests from the were otherwise unremarkable. ProBNP was elevated at 5340. White count from is 4.5, H and H 9.3 and 27.1, platelets of 197. ASSESSMENT AND PLAN: Pneumonitis, likely multifactorial. It is not clear based on the records and so the patient is unable to clarify for me whether he has indeed improved since his admission. It certainly raises question of occult process. We will favor CT chest and do without contrast given his renal failure and see if we can further identify if there is fluid there and maybe beneficial [address] [place] [address] CONSULTATION Name: DAIANA ROBERSON Room: [address] ADM IN M.R.#: [id number] Admission: 11/28/19 Attend Phys: Nereyda Fuentes MD Discharge: Date of : 52 Report #: [id number] to undergo thoracentesis. Noted plans to admit to rehab upstairs. At this point, would continue the current approach with the empiric antibiotics. <ELECTRONICALLY SIGNED> By: Carlos Fairbanks MD 12/10/19 1217 1134 [id number] Fairbanks MD /nt
--- NOTE | 2019-12-10 15:34 | NUR ---
INSURANCE UPHELD DENIAL FOR PT.TO GO TO INPT.REHAB. INFORMED SON,DEREK. RECOMMENDED SNF. HE SAID THERE IS NO WAY TO TALK HIS DAD INTO GOING TO A A NURSING FACILITY. HE SAID HE PROBABLY JUST WILL NEED TO BRING HIM HOME. HE NEEDS TO REARRANGE SOME SLEEPING ARRANGEMENTS AND ASKED IF HE COULD PICK HIS DAD UP TOMORROW. CM DISCUSSED WITH . HE SAID THAT WAS FINE. WILL NEED TO MAKE ANTIBIOTIC RECOMMENDATIONS. SON DOES NOT FEEL PT.WILL AGREE TO HOME HEALTH.
[2019-12-10 16:13] VITALS: BP 182/74
--- NOTE | 2019-12-10 16:21 | NUR ---
PT IS RESTING AT THISA TIME. VSS ON 2L NC. DO NOT DISTURB ORDER PLACED BETWEEN [id number] R/T INTERRUPTED SLEEP. NO C/O SOA OR PAIN DURING SHIFT. NO FURTHER REQUESTS. CLWR.
--- NOTE | 2019-12-10 16:23 | NUR ---
REPORT GIVEN TO ARNOLD IN [facility]. PT TAKEN TO ROOM ACCOMPANIED BY STAFF,CHART AND MEDS.
--- NOTE | 2019-12-10 17:09 | NUR ---
PT TRANSFERRED TO UNIT.I AGREE WITH MORNING ASSESSMENT. PT BP ELEVATED, MEDS GIVEN ORDERED. FALL RISK PRECAUTIONS IN PLACE. WILL CONTINUE TO MONITOR.
--- NOTE | 2019-12-10 17:30 | NUR ---
PT REMAINED ALERT AND ORIENTED. PT REMAINED ALERT AND ORIENTED AND GRUMPY. PT DOES NOT WANT TO BE BOTHERED. BP ELEVATED, MEDS GIVEN ORDERED. FALL RISK PRECAUTIONS IN PLACE. HOURLY ROUNDING COMPLETED. WILL CONTINUE TO MONITOR.
[2019-12-10 20:20] VITALS: BP 176/71
--- NOTE | 2019-12-11 06:53 | NUR ---
PATIENT HAS SLEPT WELL THROUGHOUT MOST OF THE NIGHT. VSS ON 2L 02 VIA NASAL CANNULA. PATIENT HAD C/O SOA EARLY IN THE NIGHT. NOTIFIED AND NEW ORDERS GIVEN. BROWN TO DEPENDENT DRAINAGE WITH YELLOW URINE OUTPUT. IV IN RIGHT HAND-SL. MEDICATIONS GIVEN ORDERED AND CHARTED. PATIENT INSTRUCTED TO USE CALL LIGHT WHEN NEEDING ASSISTANCE. HOURLY ROUNDS MADE. WILL CONTINUE WITH PLAN OF CARE AND NURSING TO MONITOR.
[2019-12-11 07:58] VITALS: BP 182/75
[2019-12-11 08:31] LABS: CALCIUM 7.8 mg/dL (8.5-10.1); CREATININE 1.9 mg/dL (0.6-1.3); MAGNESIUM 2.1 mg/dL (1.8-2.4)
[2019-12-11 12:29] VITALS: BP 182/75
--- NOTE | 2019-12-11 12:35 | NUR ---
PER O2 SATURATIONS PT.NEEDS O2 AT 2L/NC WITH ACTIVITY. ORDERED THRU [facility] HIS INSURANCE CONTRACTS WITH THEM. PORTABLE TANK TO BE DELIVERED TO HOSPITAL. PT.INSTRUCTED TO CALL [facility] WHEN HE GETS HOME FOR HOME DELIVERY SET UP. REFUSED HOME HEALTH/SNF.
[2019-12-11 15:06] VITALS: BP 168/109
--- NOTE | 2019-12-11 15:33 | NUR ---
PT GIVEN DISCHARGED INFORMATION, CARE NOTES, AND PRESCRIPTIONS. IV REMOVED. BROWN REMOVED. SON CALLED AND WENT OVER DISCHARGE INFORMATION. HOME MEDS GIVEN TO PATIENT. PT BELONGINGS GATHERED. OXYGEN SENT HOME. FALL RISK PRECAUTIONS IN PLACE. HOURLY ROUNDING COMPLETED. PT LEFT VIA WHEELCHAIR WITH NURSING STAFF TO HOME WITH SON.
== END 2019-12-11 15:56 | disposition home or self-care (01) | DRG 177 ==
LOC: M.ERS 13:39 → M.2W 15:53 → M.TBA-ER 15:53 → M.2W 19:44 → M.ORTHSURG 12-10 16:45
PROVIDERS: Family Medicine; Internal Medicine; Internal Medicine Nephrology; Nurse Practitioner; Physician Assistant; ADMIT Internal Medicine
DX: J15.212 Pneumonia due to Methicillin resistant Staphylococcus aureus (principal); G92 Toxic encephalopathy; N17.0 Acute kidney failure with tubular necrosis; J96.01 Acute respiratory failure with hypoxia; I42.9 Cardiomyopathy, unspecified; N39.0 Urinary tract infection, site not specified; I50.22 Chronic systolic (congestive) heart failure; I13.0 Hypertensive heart and chronic kidney disease with heart failure and stage 1 through stage 4 chronic kidney disease, or unspecified chronic kidney disease; N18.3 Chronic kidney disease, stage 3 (moderate); F03.90 Unspecified dementia, unspecified severity, without behavioral disturbance, psychotic disturbance, mood disturbance, and anxiety; F32.9 Major depressive disorder, single episode, unspecified; F41.9 Anxiety disorder, unspecified; G47.33 Obstructive sleep apnea (adult) (pediatric); I27.20 Pulmonary hypertension, unspecified; E66.9 Obesity, unspecified; F41.1 Generalized anxiety disorder; I35.1 Nonrheumatic aortic (valve) insufficiency; G47.00 Insomnia, unspecified; Z20.828 Contact with and (suspected) exposure to other viral communicable diseases; E11.65 Type 2 diabetes mellitus with hyperglycemia; Z89.511 Acquired absence of right leg below knee; Z68.33 Body mass index [BMI] 33.0-33.9, adult; Z82.49 Family history of ischemic heart disease and other diseases of the circulatory system; Z83.3 Family history of diabetes mellitus; Z88.6 Allergy status to analgesic agent; Z79.82 Long term (current) use of aspirin; Z79.899 Other long term (current) drug therapy

== ENCOUNTER 2019-12-12 11:01 | Inpatient (IN) | payer OTHER ==
[~2019-12-12] VITALS: Ht 175.3 cm; Wt 100.5 kg
[~2019-12-12 11:01] MED LIST changes: +ASA81BEC PO; +BENADRYL25 MG PO; +CARVEDILOL25 MG PO; +CELEXA40 MG PO; +CLONAZEPAM 0.50.5 M1 PO; +CRESTOR40 MG PO; +DESYREL150 MG PO; +DRIZALMA SPRINK30 MG PO; +DYMISTA NASAL S23 GM NASAL; +FUROSEMIDE 40 M40 MG PO; +HYTRIN 2MG CAPSU2 M1 PO; +KEPPRA XR750 MG PO; +LEVALBUTER0.63 MG/3 INH; +LEVEMIR FL100 UNIT/2 SUBQ; +MELATONIN5 M1 PO; +MINOXIDIL10 MG PO; +NEURONTIN 400M400 M2 PO; +NOVOLOG FL100 UNIT/M SUBQ; +PLAVIX 75 MG TA75 MG PO; +PRIMIDONE 250M250 MG PO; +SPIRONOLACTONE25 MG PO; +TRAZODONE HCL100 MG PO; +VITAMIN D325 MC5 PO; +ZESTRIL20 MG PO
[2019-12-12 11:12] VITALS: BP 130/52
[2019-12-12 12:13] LABS: ABSOLUTE BASOPHILS 0.1 thou/uL (0.0-0.2); ABSOLUTE EOSINOPHILS 0.2 thou/uL (0.0-0.7); ABSOLUTE MONOCYTES 0.6 thou/uL (0.0-1.2); ABSOLUTE NEUTROPHILS 4.3 thou/uL (1.6-8.1); EOSINOPHILS 3.3 %; HEMATOCRIT 25.4 % (42.0-52.0); HEMOGLOBIN 8.8 gm/dL (14.0-18.0); LYMPHOCYTES 15.7 %; MCH 30.3 pg (26.0-34.0); MCHC 34.5 g/dL (28.0-37.0); MCV 87.8 fL (80.0-100.0); MONOCYTES 10.3 %; MPV 9.8 fl. (7.2-11.1); NUCLEATED RBCS 0 /100WBC; PLATELET COUNT* 136 thou/uL (150-400); POLYS 69.7 %; RDW-CV 14.8 % (10.5-14.5); WBC 6.2 thou/uL (4.0-11.0)
[2019-12-12 12:23] LABS: APTT 31.3 Seconds (25.0-31.3); CALCIUM 7.9 mg/dL (8.5-10.1); CREATININE 2.1 mg/dL (0.6-1.3); INR 1.1; POTASSIUM 4.9 mmol/L (3.5-5.1); PROTIME 11.7 Seconds (9.20-11.50)
[2019-12-12 12:37] LABS: MAGNESIUM 2.1 mg/dL (1.8-2.4); TOTAL BILIRUBIN 0.2 mg/dL (<0.1-1.0); TOTAL PROTEIN 6.7 g/dL (6.4-8.2)
[2019-12-12 16:25] VITALS: BP 181/71
--- NOTE | 2019-12-12 16:25 | EKG ---
[place] [address] ELECTROCARDIOGRAM REPORT Name: DAIANA ROBERSON Room: [place] [address] ADM IN .R.#: [id number] Admission: 12/12/19 Attend Phys: Alcon patton Sa Discharge: Date of : 52 Date of Service: 12/12/19 1119 Report #: [id number] THIS REPORT FOR: //name// [facility] ED Test Date: 2019-12-12 Test Time: 11:19:48 Pat Name: DAIANA ROBERSON Department: Room: [facility] Gender: M Door Framer: : 1950 Requested By: Razia Muhammad Order Number: [id number] MD: Andrew Valiente Measurements Intervals [place] Rate: 72 P: 62 NE: 164 QRS: 11 QRSD: 89 T: 57 QT: 423 QTc: 463 Interpretive Statements Sinus rhythm Multiple ventricular premature complexes Borderline low voltage, extremity leads Anteroseptal infarct, old Compared to ECG 11/28/2019 13:49:13 Myocardial infarct finding now present T-wave abnormality no longer present Electronically Signed On 12-12-2019 16:23:47 CDT by Andrew Valiente [email or web address] <ELECTRONICALLY SIGNED> By: Andrew Valiente MD, [facility] 12/12/19 1623 1119 1119 Andrew Valiente MD, [facility] /EPI
[2019-12-12 17:10] LABS: ICTOTEST (BILI CONFIRMATORY) Negative (Negative); URINE BILIRUBIN 1+ (Negative); URINE BLOOD TRACE (Negative); URINE CLARITY CLEAR; URINE COLOR YELLOW; URINE GLUCOSE-RANDOM NEGATIVE (Negative); URINE KETONES NEGATIVE (Negative); URINE LEUKOCYTES-REFLEX NEGATIVE (Negative); URINE NITRITE-REFLEX NEGATIVE (Negative); URINE PROTEIN 1+ (Negative); URINE SPECIFIC GRAVITY 1.025 (1.005-1.030); URINE UROBILINOGEN 0.2 E.U./dl (0.2-1.0)
[2019-12-12 19:54] VITALS: BP 169/68
[2019-12-12 20:15] VITALS: BP 183/77
[2019-12-13] VITALS (7 sets, daily range): BP systolic 146–198; BP diastolic 42–88
[2019-12-13 05:05] LABS: ALBUMIN 2.8 g/dL (3.4-5.0); CALCIUM 7.9 mg/dL (8.5-10.1); MAGNESIUM 1.9 mg/dL (1.8-2.4); PHOSPHORUS* 4.2 mg/dL (2.5-4.9); POTASSIUM 4.1 mmol/L (3.5-5.1)
[2019-12-14 04:00] VITALS: BP 161/57
[2019-12-14 05:01] LABS: CALCIUM 7.8 mg/dL (8.5-10.1); CREATININE 2.1 mg/dL (0.6-1.3); MAGNESIUM 1.8 mg/dL (1.8-2.4); PHOSPHORUS* 4.3 mg/dL (2.5-4.9); POTASSIUM 3.7 mmol/L (3.5-5.1)
[2019-12-14 08:00] VITALS: BP 108/70
[2019-12-14 12:00] VITALS: BP 141/55
[2019-12-14 16:44] VITALS: BP 102/78
[2019-12-14 20:00] VITALS: BP 167/73
[2019-12-15] VITALS: BP 135/43
[2019-12-15 03:31] VITALS: BP 123/40
[2019-12-15 08:00] VITALS: BP 178/62
[2019-12-15 09:46] LABS: HEMATOCRIT 25.2 % (42.0-52.0); HEMOGLOBIN 8.8 gm/dL (14.0-18.0); MCH 30.2 pg (26.0-34.0); MCHC 34.9 g/dL (28.0-37.0); MCV 86.5 fL (80.0-100.0); MPV 9.2 fl. (7.2-11.1); RBC 2.91 mil/uL (4.50-6.00); RDW-CV 14.9 % (10.5-14.5); WBC 5.1 thou/uL (4.0-11.0)
[2019-12-15 09:53] LABS: APTT 30.6 Seconds (25.0-31.3); INR 1.2; PROTIME 11.9 Seconds (9.20-11.50)
[2019-12-15 10:15] LABS: CALCIUM 8.1 mg/dL (8.5-10.1); CREATININE 2.2 mg/dL (0.6-1.3); MAGNESIUM 1.9 mg/dL (1.8-2.4); PHOSPHORUS* 4.8 mg/dL (2.5-4.9); POTASSIUM 4.3 mmol/L (3.5-5.1)
[2019-12-15 12:11] VITALS: BP 147/59
[2019-12-15 15:48] VITALS: BP 144/60
[2019-12-15 16:03] LABS: SOURCE PLEURAL FLUID; TOTAL VOLUME 2000 ml
[2019-12-15 16:04] LABS: BF RBC 201 /mm3; CLARITY CLEAR; TOTAL CELL COUNT 126 /mm3
[2019-12-15 16:16] LABS: BF LYMPHOCYTES 60 %; BF MONOCYTES 23 %; BF OTHER 8; BF POLYS 6 %; BODY FLUID BANDS 3 %
[2019-12-15 23:53] VITALS: BP 124/46
[2019-12-16 04:00] VITALS: BP 130/48
[2019-12-16 08:00] VITALS: BP 135/52
[2019-12-16 14:14] VITALS: BP 109/35
[2019-12-16 16:00] VITALS: BP 138/52
[2019-12-16 20:15] VITALS: BP 134/49
[2019-12-17] VITALS: BP 134/42
[2019-12-17 04:00] VITALS: BP 133/48
[2019-12-17 08:00] VITALS: BP 130/50
[2019-12-17 08:38] LABS: ALBUMIN 2.7 g/dL (3.4-5.0); CALCIUM 7.6 mg/dL (8.5-10.1); CREATININE 2.6 mg/dL (0.6-1.3); MAGNESIUM 1.9 mg/dL (1.8-2.4); PHOSPHORUS* 4.7 mg/dL (2.5-4.9); POTASSIUM 3.6 mmol/L (3.5-5.1)
[2019-12-17 12:27] VITALS: BP 140/45
[2019-12-17 16:52] VITALS: BP 120/80
[2019-12-17 19:50] VITALS: BP 159/56
[2019-12-18] VITALS: BP 121/48
[2019-12-18 04:00] VITALS: BP 144/46
[2019-12-18 04:37] LABS: ALBUMIN 2.7 g/dL (3.4-5.0); CALCIUM 7.8 mg/dL (8.5-10.1); CREATININE 2.6 mg/dL (0.6-1.3); MAGNESIUM 1.9 mg/dL (1.8-2.4); PHOSPHORUS* 3.9 mg/dL (2.5-4.9)
[2019-12-18 08:00] VITALS: BP 142/48
[2019-12-18 12:14] VITALS: BP 147/56
[2019-12-18 17:18] VITALS: BP 156/64
[2019-12-18 20:48] VITALS: BP 132/47
[2019-12-18 21:33] LABS: BE 6.9 mmol/L (-2 to +3); PCO2 VENOUS 50.9 mmHg (41.0-51.0); PO2 VENOUS 61.7 mmHg (35.0-45.0)
[2019-12-19 00:29] VITALS: BP 128/47
[2019-12-19 04:00] VITALS: BP 139/50
[2019-12-19 08:00] VITALS: BP 147/60
[2019-12-19 12:51] VITALS: BP 145/56
[2019-12-19] MEDS ORDERED: PREDNISONE 10 M10 M1 PO (16:37)
[2019-12-19 17:24] VITALS: BP 132/60
== END 2019-12-19 18:32 | disposition home health service (06) | DRG 682 ==
LOC: M.ERS 11:01 → M.TBA-ER 12:45 → M.2W 12:45
PROVIDERS: Internal Medicine; Personal Emergency Response Attendant; ADMIT Family Medicine
PROC: 0W993ZZ Drainage of Right Pleural Cavity, Percutaneous Approach (ICD-10-PCS; principal; 2019-12-15)
DX: N17.0 Acute kidney failure with tubular necrosis (principal); I50.33 Acute on chronic diastolic (congestive) heart failure; J18.9 Pneumonia, unspecified organism; J96.01 Acute respiratory failure with hypoxia; I13.0 Hypertensive heart and chronic kidney disease with heart failure and stage 1 through stage 4 chronic kidney disease, or unspecified chronic kidney disease; J91.8 Pleural effusion in other conditions classified elsewhere; N18.3 Chronic kidney disease, stage 3 (moderate); F32.9 Major depressive disorder, single episode, unspecified; F41.9 Anxiety disorder, unspecified; D69.6 Thrombocytopenia, unspecified; I27.20 Pulmonary hypertension, unspecified; G47.00 Insomnia, unspecified; E11.22 Type 2 diabetes mellitus with diabetic chronic kidney disease; D64.9 Anemia, unspecified; F41.1 Generalized anxiety disorder; I35.1 Nonrheumatic aortic (valve) insufficiency; N40.0 Benign prostatic hyperplasia without lower urinary tract symptoms; E66.9 Obesity, unspecified; Z89.511 Acquired absence of right leg below knee; Z88.6 Allergy status to analgesic agent; Z68.32 Body mass index [BMI] 32.0-32.9, adult; Z82.49 Family history of ischemic heart disease and other diseases of the circulatory system; T50.2X5A Adverse effect of carbonic-anhydrase inhibitors, benzothiadiazides and other diuretics, initial encounter; Y92.89 Other specified places as the place of occurrence of the external cause; E11.51 Type 2 diabetes mellitus with diabetic peripheral angiopathy without gangrene

== ENCOUNTER 2019-12-21 06:12 | Inpatient (IN) | payer OTHER ==
[~2019-12-21] VITALS: Ht 175.3 cm; Wt 92.5 kg
[~2019-12-21 06:12] MED LIST changes: +PREDNISONE 10 M10 M1 PO
[2019-12-21 06:25] VITALS: BP 151/59
[2019-12-21 07:05] LABS: ABSOLUTE BASOPHILS 0.1 thou/uL (0.0-0.2); ABSOLUTE EOSINOPHILS 0.3 thou/uL (0.0-0.7); ABSOLUTE LYMPHOCYTES 1.5 thou/uL (0.8-5.3); ABSOLUTE MONOCYTES 0.7 thou/uL (0.0-1.2); ABSOLUTE NEUTROPHILS 3.1 thou/uL (1.6-8.1); BASOPHILS 1.1 %; EOSINOPHILS 5.3 %; HEMATOCRIT 24.8 % (42.0-52.0); HEMOGLOBIN 8.5 gm/dL (14.0-18.0); LYMPHOCYTES 25.7 %; MCH 29.8 pg (26.0-34.0); MCHC 34.1 g/dL (28.0-37.0); MCV 87.3 fL (80.0-100.0); MONOCYTES 12.8 %; MPV 9.1 fl. (7.2-11.1); NUCLEATED RBCS 0 /100WBC; PLATELET COUNT* 174 thou/uL (150-400); POLYS 55.1 %; RBC 2.84 mil/uL (4.50-6.00); RDW-CV 14.7 % (10.5-14.5); WBC 5.7 thou/uL (4.0-11.0)
[2019-12-21 07:20] LABS: CALCIUM 7.5 mg/dL (8.5-10.1); CREATININE 2.4 mg/dL (0.6-1.3)
[2019-12-21 07:27] LABS: APTT 29.6 Seconds (25.0-31.3); INR 1.1; PROTIME 11.6 Seconds (9.20-11.50)
[2019-12-21 07:31] LABS: ALBUMIN 2.9 g/dL (3.4-5.0); TOTAL BILIRUBIN 0.3 mg/dL (<0.1-1.0); TOTAL PROTEIN 6.2 g/dL (6.4-8.2)
--- NOTE | 2019-12-21 10:54 | NUR ---
CENTRAL LINE INSERTED BY DR. MICHELLE
[2019-12-21 11:24] LABS: URINE BILIRUBIN NEGATIVE (Negative); URINE BLOOD NEGATIVE (Negative); URINE CLARITY CLEAR; URINE COLOR YELLOW; URINE GLUCOSE-RANDOM NEGATIVE (Negative); URINE KETONES NEGATIVE (Negative); URINE LEUKOCYTES-REFLEX NEGATIVE (Negative); URINE NITRITE-REFLEX NEGATIVE (Negative); URINE PROTEIN TRACE (Negative); URINE SPECIFIC GRAVITY 1.015 (1.005-1.030); URINE UROBILINOGEN 0.2 E.U./dl (0.2-1.0)
--- NOTE | 2019-12-21 12:18 | EKG ---
[place] [address] ELECTROCARDIOGRAM REPORT Name: ROBERSONDAIANA Room: [place] [address] ADM IN [facility].#: [id number] Admission: 12/21/19 Attend Phys: Nereyda Fuentes, Discharge: Date of : 52 Date of Service: 12/21/19 0645 Report #: [id number] THIS REPORT FOR: //name// [facility] ED Test Date: 2019-12-21 Test Time: 06:45:44 Pat Name: DAIANA ROBERSON Department: Room: [facility] Gender: M Territory Sales Manager: KARENA : 1950 Requested By: Drake Keita Order Number: [id number] MD: Ryan Miller Measurements Intervals [place] Rate: 71 P: 41 DC: 168 QRS: -9 QRSD: 97 T: 50 QT: 433 QTc: 471 Interpretive Statements Sinus rhythm Multiple ventricular premature complexes Compared to ECG 12/12/2019 11:19:48 no change Electronically Signed On 12-21-2019 12:16:24 CDT by Ryan Miller [email or web address] <ELECTRONICALLY SIGNED> By: Ryan Miller MD, [facility] 12/21/19 1216 0645 0645 Ryan Miller MD, [facility] /EPI
[2019-12-21 13:12] VITALS: BP 164/57
[2019-12-21 14:31] VITALS: BP 152/87
--- NOTE | 2019-12-21 15:30 | NUR ---
ASSUMED CARE OF PT FROM ER. PT IS VERY WEAK AND WAS EDUCATED ON POC, DISEASE PROCESS AND USING THE CALL LIGHT FOR ASSISTANCE. PT IS RESTING WITH NO CO OF PAIN OR NAUSEA AT THIS TIME. WILL CONTINUE TO MONITOR.
[2019-12-21 16:00] VITALS: BP 146/96
[2019-12-21 16:03] LABS: AMP/METHAMP Negative (Negative); BARBITURATES POSITIVE (Negative); BENZODIAZEPINES Negative (Negative); COCAINE Negative (Negative); METHADONE Negative (Negative); OPIATES Negative (Negative); PCP Negative (Negative); THC Negative (Negative)
[2019-12-21 19:40] VITALS: BP 157/52
[2019-12-22] VITALS: BP 124/37
[2019-12-22 05:00] VITALS: BP 157/52
[2019-12-22 07:04] LABS: HEMATOCRIT 24.9 % (42.0-52.0); HEMOGLOBIN 8.7 gm/dL (14.0-18.0); MCH 30.3 pg (26.0-34.0); MCHC 34.8 g/dL (28.0-37.0); MCV 87.1 fL (80.0-100.0); MPV 9.6 fl. (7.2-11.1); RBC 2.86 mil/uL (4.50-6.00); RDW-CV 14.8 % (10.5-14.5); WBC 5.3 thou/uL (4.0-11.0)
[2019-12-22 07:46] LABS: ALBUMIN 2.7 g/dL (3.4-5.0); CALCIUM 7.4 mg/dL (8.5-10.1); CREATININE 2.1 mg/dL (0.6-1.3); MAGNESIUM 2.4 mg/dL (1.8-2.4); TOTAL BILIRUBIN 0.3 mg/dL (<0.1-1.0)
[2019-12-22 08:00] VITALS: BP 137/50
[2019-12-22 12:06] VITALS: BP 171/66
[2019-12-22 12:55] LABS: CHOLESTEROL 138 mg/dL (<200); HDL CHOLESTEROL 28 mg/dL (>40); LDL CHOLESTEROL 81 mg/dL (<100); SERUM ASSESSMENT Clear; TC:HDL 4.9 Ratio (Not establshd); TRIGLYCERIDE 148 mg/dL (<150); VLDL 30 mg/dL (<40)
--- NOTE | 2019-12-22 13:28 | NUR ---
Pt A&O. Discharged to home on Sunday with [facility], after refusing to dc to skilled. Pt readmitted with weakness, Pt now in agreement with going to skilled at dc. CM called and left for Natasha at [facility], to see if they can accept Pt at dc for skilled, awaiting PT/OT LOCO hickey to fax when available. Pt resides at home with his son. Uses a walker for mobility, has prothesis. Pt should be medically stable to dc soon. Following.
--- NOTE | 2019-12-22 14:29 | NUR ---
Nutrition: High risk screen. Pt reported good appetite and feels that he is eating enough despite that he does not like how the food is seasoned here. Wt down from discharge a few days ago at 221 lb. Rt BKA noted. Albumin 2.7, prealbumin 6/5 and all prior prealbumin WNL. CM working on placement. Assessed at low nutrition risk at this time.
--- NOTE | 2019-12-22 15:23 | 2DMMODE ---
[place] [address] 2 D/M-MODE ECHOCARDIOGRAM Name: DAIANA ROBERSON Ana Room: [address] IN M.R.#: [id number] Admission: 12/21/19 Attend Phys: Nereyda Fuentes, Discharge: Date of : 52 Date of Service: 12/22/19 1521 Report #: [id number] THIS REPORT FOR: cc: Romi Diaz MD, Katrina MD Holkins,Andrew Denney MD [facility] ~ APPROVED REPORT Study performed: 12/22/2019 10:56:20 EXAM: Limited 2D Echocardiogram Patient Location: In-Patient BSA: 1.95 HR: 50 bpm BP: 137/50 mmHg Other Information Study Quality: Good Indications Pericardial Effusion 2D Dimensions IVSd: 18.68 (7-11mm) LVOT Diam: 19.49 (18-24mm) LVDd: 47.55 mm PWd: 11.86 (7-11mm) Ascending Ao: 31.99 (22-36mm) LVDs: 32.44 (25-40mm) Aortic Root: 26.40 mm Volumes Left Atrial Volume (Systole) LA ESV Index: 31.40 mL/m2 Left Ventricle The left ventricle is normal size. There is normal LV segmental wall motion. Moderate concentric left ventricular hypertrophy. Left ventricular systolic function is normal. The left ventricular ejection fraction is within the normal range. LVEF is 60-65%. Right Ventricle The right ventricle is normal size. The right ventricular systolic function is normal. [facility] [address] [address] 2 D/M-MODE ECHOCARDIOGRAM Name: DAIANA ROBERSON Room: [address] IN [facility].#: [id number] Admission: 12/21/19 Attend Phys: Nereyda Fuentes, Discharge: Date of : 52 Date of Service: 12/22/19 1521 Report #: [id number] Left atrium is mildly dilated. The right atrium size is normal. Aortic Valve Mild aortic valve sclerosis. Mitral Valve The mitral valve is normal in structure. Great Vessels The aortic root is normal in size. IVC is normal in size and collapses >50% with inspiration. Pericardium Mild posterior pericardial effusion. <Conclusion> The left ventricle is normal size. Moderate concentric left ventricular hypertrophy. Left ventricular systolic function is normal. The left ventricular ejection fraction is within the normal range. LVEF is 60-65%. The right ventricle is normal size. Left atrium is mildly dilated. The right atrium size is normal. Mild posterior pericardial effusion. There is normal LV segmental wall motion. Mild aortic valve sclerosis. The mitral valve is normal in structure. <ELECTRONICALLY SIGNED> By: Andrew Valiente MD, [facility] 12/22/19 1521 1521 1521 Andrew Valiente MD, [facility] /INF
[2019-12-22 16:12] VITALS: BP 154/46
--- NOTE | 2019-12-22 16:16 | NUR ---
ASSUMED PT CARE REPORT RECEIVED FROM NURSE. PT IS AOX4. ON 2 L NC. TRACING SR ON HAIR ASSISTANT. PLAVIX ON HOLD PER [employer] COMBINATION TEACHER. OT/PT EVALUATION PERFORMED DURING THIS SHIFT. IV ANTIBIOTIC HANGED. PT ASSISTED OUT OF BED TO RECLINER WITH ASSIST X1. RIGHT SUBCLVIAN IV LINE IS PATENT. BLOOD RETURN CHECKED. ECHOCARDIGRAM PERFORMED AT BEDSIDE WELL EEG. NO FURTHER COMPLAINT FROM PATIENT. WILL CONTINUE TO MONITOR
[2019-12-22 17:13] LABS: CALCIUM 7.5 mg/dL (8.5-10.1); CREATININE 2.1 mg/dL (0.6-1.3); POTASSIUM 4.1 mmol/L (3.5-5.1)
--- NOTE | 2019-12-22 18:35 | NUR ---
at 1830 , this nurse came to the realization that the patient has medsurg status ordered since admission. heart monitor was retrieved.
[2019-12-22 19:40] VITALS: BP 147/50
[2019-12-23] VITALS (7 sets, daily range): BP systolic 117–173; BP diastolic 52–92
[2019-12-23 06:42] LABS: HEMATOCRIT 24.4 % (42.0-52.0); HEMOGLOBIN 8.4 gm/dL (14.0-18.0); MCH 29.9 pg (26.0-34.0); MCHC 34.3 g/dL (28.0-37.0); MCV 87.2 fL (80.0-100.0); RBC 2.8 mil/uL (4.50-6.00); RDW-CV 14.8 % (10.5-14.5); WBC 4.9 thou/uL (4.0-11.0)
[2019-12-23 06:48] LABS: CALCIUM 7.4 mg/dL (8.5-10.1); POTASSIUM 4.3 mmol/L (3.5-5.1)
--- NOTE | 2019-12-23 10:46 | NUR ---
ASSUMED PT CARE REPORT RECEIVED FROM NURSE PT IS AOX4. ON 2 L NC. MEDSURG STATUS. RIGHT SUBCLAVIAN X3 LUMEN. UP WITH ASSIST X1. ACCUCHECK. IV ANTIBIOTIC GIVEN. PLAVIX ON HOLD PER CONCRETE PRECAST MOULDER. PER CONCRETE PRECAST MOULDER, PT IS NOT TO GO HAVE THE THORACENTESIS DONE AT THIS TIME. THIS NURSE COMMUNICATED THIS TO THE ULTRASOUND DEPARTMENT. ISOLATION MAINTAINED FOR MRSA. CALL LIGHT WITHIN REACH. WILL CONTINUE TO MONITOR
--- NOTE | 2019-12-23 14:57 | NUR ---
Per , Pt to have thora prior to dc. Anticipate dc Sunday. CM waiting for updated therapy notes, to be sent to [facility] so they can initiate ins auth. CM asked vision rehabilitation therapist to have therapies see Pt.
--- NOTE | 2019-12-23 17:40 | NUR ---
pt went for a pigtail placement. pt returened on unit at 1710 accompanied by ir nurse. pt is aox4. medsurg status. chest tube in place in right lung. insertion site is intact. pt denies pain . accucheck. pt is now eating diner. pt chest tube set up at 20 , attached to the suctioning unit. pt head of bed elevated at 90 degree to eat. will continue to monitor chest tube
[2019-12-24 05:54] LABS: ABSOLUTE BASOPHILS 0.1 thou/uL (0.0-0.2); ABSOLUTE EOSINOPHILS 0.2 thou/uL (0.0-0.7); ABSOLUTE LYMPHOCYTES 1.3 thou/uL (0.8-5.3); ABSOLUTE MONOCYTES 0.5 thou/uL (0.0-1.2); ABSOLUTE NEUTROPHILS 2.4 thou/uL (1.6-8.1); BASOPHILS 1.1 %; EOSINOPHILS 5.2 %; HEMATOCRIT 24.1 % (42.0-52.0); HEMOGLOBIN 8.3 gm/dL (14.0-18.0); LYMPHOCYTES 29.1 %; MCHC 34.4 g/dL (28.0-37.0); MCV 87.4 fL (80.0-100.0); MONOCYTES 11.7 %; MPV 9.5 fl. (7.2-11.1); NUCLEATED RBCS 0 /100WBC; PLATELET COUNT* 186 thou/uL (150-400); POLYS 52.9 %; RBC 2.75 mil/uL (4.50-6.00); WBC 4.5 thou/uL (4.0-11.0)
[2019-12-24 06:16] LABS: ALBUMIN 2.7 g/dL (3.4-5.0); CALCIUM 7.1 mg/dL (8.5-10.1); CREATININE 1.9 mg/dL (0.6-1.3); MAGNESIUM 2.4 mg/dL (1.8-2.4); POTASSIUM 4.5 mmol/L (3.5-5.1); TOTAL BILIRUBIN 0.3 mg/dL (<0.1-1.0); TOTAL PROTEIN 6.1 g/dL (6.4-8.2)
--- NOTE | 2019-12-24 06:23 | NUR ---
ASSUMED CARE OF PT AFTER REPORT AT 1930. PT A&OX4. VSS. PHYSICAL ASSESSMENT COMPLETED AND CHARTED. PT ON O2 AT 2L NC. PT ON MEDSURG STATUS. PT WITH RIGHT PIGTAIL PATENT & INTACT WITH NO OUTPOUT NOTED. PT DENIES ANY PAIN. MAINTAINED ON CONTACT PRECAUTION FOR MRSA. CALL LIGHT WITHIN REACH.
[2019-12-24 08:00] VITALS: BP 175/50
--- NOTE | 2019-12-24 08:54 | NUR ---
CM asked rehab nurse to ask PT to see Pt today, plan is for Pt to dc to skilled, facility will need to get insurance auth, per anticipate dc either tomorrow or Sunday.
[2019-12-24 12:00] VITALS: BP 146/65
--- NOTE | 2019-12-24 12:04 | NUR ---
Spoke with pulm, Pt has a pig tail cath in chest, will need to be in until early next week, Pt will need to remain in the hospital. CM updated Pt's son of POC. Goal continues to be skilled at dc. Following.
--- NOTE | 2019-12-24 14:37 | NUR ---
CHEST TUBE IN PLACE. OUTPUT OF 1950 CC AT 1435. NEW ATRIUM ATTACHED TO PT 'S CHEST TUBE.
[2019-12-24 16:00] VITALS: BP 162/57
--- NOTE | 2019-12-24 16:29 | NUR ---
PT IS AOX4. ON 2 L NC. NO COMPLAINT. CHEST TUBE FUNCTIONING WELL. ACCUCHECK. CALL LGIGHT WITHIN REACH
--- NOTE | 2019-12-24 18:04 | EEG ---
[address] [address] EEG STUDY REPORT Name: DAIANA ROBERSON Room: [address] IN M.R.#: [id number] Admission: 12/21/19 Attend Phys: Nereyda Fuentes MD Discharge: Date of : 52 Report #: [id number] THIS REPORT FOR: //name// CC: Romi Fuentes DATE OF SERVICE: 12/22/2019 This patient is being evaluated for weakness. EEG was done by placing the electrode by standard 10-20 system of electrode placement. Both referential and sequential montages were used for recording. Background activity in this patient's EEG is about 7-8 Hz and 15 microvolt. Photic stimulation is unremarkable. The patient went to sleep that is associated with bilateral slowing and vertex sharp waves. Throughout the record, no active epileptiform activity was noted. IMPRESSION: This is an abnormal EEG because it is intermixed with theta range slowing on both sides. That is a nonspecific abnormality, which can occur with dementia, encephalopathy, effect of psychotropic medication, etc. Clinical correlation is recommended. <ELECTRONICALLY SIGNED> By: Henry Hauser MD 12/24/19 1804 0955 [id number] Hauser MD /nt
--- NOTE | 2019-12-24 19:09 | NUR ---
CHEST TUBE OUTPUT 170CC AT 1900
[2019-12-24 20:00] VITALS: BP 158/60
--- NOTE | 2019-12-25 05:18 | NUR ---
ASSUMED CARE OF PT AFTER REPORT AT 1930. PT A&OX4. VSS. PHYSICAL ASSESSMENT COMPLETED AND CHARTED. PT O
--- NOTE | 2019-12-25 06:04 | NUR ---
ASSUMED CARE OF PT AFTER REPORT AT 1930. PT A&OX4. VSS. PHYSICAL ASSESSMENT COMPLETED AND CHARTED. PT ON O2 AT 2L NC. PT ON MEDSURG STATUS. PT UPWITH 1 ASSIST TO BSC. PT DENIES ANY PAIN. PT WITH PIGTAIL TO PLEUREVAC PATENT & INTACT. CALL LIGHT WITHIN REACH.
--- NOTE | 2019-12-25 07:05 | NUR ---
CHANGE OF SHIFT BEDSIDE REPORT GIVEN PATIENT SEEN AT BEDSIDE, IN BED ASLEEP ASSUMED PATIENT CARE
[2019-12-25 08:00] VITALS: BP 153/56
[2019-12-25 08:42] LABS: ABSOLUTE BASOPHILS 0.1 thou/uL (0.0-0.2); ABSOLUTE EOSINOPHILS 0.3 thou/uL (0.0-0.7); ABSOLUTE LYMPHOCYTES 1.1 thou/uL (0.8-5.3); ABSOLUTE MONOCYTES 0.7 thou/uL (0.0-1.2); ABSOLUTE NEUTROPHILS 4.5 thou/uL (1.6-8.1); BASOPHILS 0.9 %; EOSINOPHILS 3.9 %; HEMATOCRIT 24.7 % (42.0-52.0); HEMOGLOBIN 8.4 gm/dL (14.0-18.0); LYMPHOCYTES 17.1 %; MCH 29.9 pg (26.0-34.0); MCHC 34.2 g/dL (28.0-37.0); MCV 87.4 fL (80.0-100.0); MPV 9.6 fl. (7.2-11.1); NUCLEATED RBCS 0 /100WBC; PLATELET COUNT* 192 thou/uL (150-400); POLYS 68.1 %; RBC 2.82 mil/uL (4.50-6.00); RDW-CV 14.8 % (10.5-14.5); WBC 6.7 thou/uL (4.0-11.0)
[2019-12-25 09:18] LABS: ALBUMIN 2.7 g/dL (3.4-5.0); CALCIUM 6.8 mg/dL (8.5-10.1); CREATININE 1.9 mg/dL (0.6-1.3); MAGNESIUM 2.2 mg/dL (1.8-2.4); POTASSIUM 4.3 mmol/L (3.5-5.1); TOTAL BILIRUBIN 0.2 mg/dL (<0.1-1.0); TOTAL PROTEIN 5.5 g/dL (6.4-8.2)
--- NOTE | 2019-12-25 14:08 | NUR ---
PATIENT DISCHARGED TO HOME DC INFORMATION GIVEN, ACKNOWLEDGED, SGNE COPIES GIVEN IV AND HEART MONITOR REMOVED PERSONAL BELONGINGS RETURNED ASSISTED OUT VIA WC GOOD CONDITION TO WAITING CAR
[2019-12-25 15:07] LABS: BF RBC <1000 /mm3; TOTAL CELL COUNT 305 /mm3
[2019-12-25 15:11] LABS: CLARITY CLEAR; TOTAL VOLUME 5 ml
[2019-12-25 15:32] LABS: BF LYMPHOCYTES 94 %; BF MONOCYTES 1 %; BF POLYS 5 %; BF TISSUE 2 /100 WBC
[2019-12-25 15:40] LABS: SOURCE CHEST
[2019-12-25 17:31] VITALS: BP 145/52
--- NOTE | 2019-12-25 17:45 | NUR ---
PATIENT BACK FROM LOCAL BULK DRIVER PATIENT SETTLED IN RM VITAL SIGNS STABLE R GROIN SITE C/D/I DENIES PAIN BUT STILL HAS C/O SOA AND SOME ANXIETY IT APPEARS PATIENTS FACE IS BRIGHT RED PATIENT GIVEN COLD, WET CLOTH DE [place] FACE AND PRN XANAX PATIENT INSTRUCTED TO CALL FOR ASSIST AND TO REMAIN FLAT UNTIL 2044 REPOIRT GIVEN TO TRACY URIAS AND CARE ASSUMED
[2019-12-25 20:00] VITALS: BP 145/53
--- NOTE | 2019-12-26 05:19 | NUR ---
ASSUMED CARE OF PT AFTER REPORT AT 1930. PT A&OX4. VSS. PHYSICAL ASSESSMENT COMPLETED AND CHARTED. PT ON O2 AT 2L NC. PT ON MEDSURG STATUS. PT UP WITH 1 ASSIST. PT COMPLAINED OF RIGHT SHOULDER PAIN-MED GIVEN PER SEP. PT WITH PIGTAIL TO ATRIUM PATENT & INTACT. CALL LIGHT WITHIN REACH.
[2019-12-26 08:00] VITALS: BP 123/52
--- NOTE | 2019-12-26 11:55 | NUR ---
No weekend dc, pulm following.
[2019-12-26 14:11] LABS: CREATININE 2.1 mg/dL (0.6-1.3); POTASSIUM 4.8 mmol/L (3.5-5.1)
[2019-12-26 16:00] VITALS: BP 96/60
--- NOTE | 2019-12-26 17:58 | NUR ---
PATIENT RESTING IN BED. CURRENTLY ON ROOM AIR, CHEST TUBE TO -20 SUCTION, PLEURAL FLUID SENT TO LAB. VSS ANDPATINET IN NOAPPARNET SIGNS OF DISTRESS AT THIS TIME. HOURLY ROUNDING COMPLETED FOR PATINET SAFETY. ALBUMIN PER PLMONATRY ORDERS.
[2019-12-26 20:00] VITALS: BP 161/59
--- NOTE | 2019-12-27 03:31 | NUR ---
PT ALERT ORIENTED. UP FROM CHAIR TO BED WITH ASSIST OF ONE. MEDSURG STATUS. PT REQUEST NO LAB OR VS UNTIL AM. DENIES PAIN. R CHEST TUBE TO -20 CM SXN. CHEST TUBE WITH SEROUS DRAINAGE. ON RA. VOIDS PER URINAL. R SUBCLAVIAN TRIPLE LUMAN WITH BLUE PORT CLOTTED OFF REPORTED PER DAY SHIFT.
[2019-12-27 06:14] LABS: HEMATOCRIT 24.8 % (42.0-52.0); HEMOGLOBIN 8.5 gm/dL (14.0-18.0); MCHC 34.2 g/dL (28.0-37.0); MCV 87.9 fL (80.0-100.0); MPV 9.2 fl. (7.2-11.1); RBC 2.82 mil/uL (4.50-6.00); RDW-CV 15.2 % (10.5-14.5); WBC 4.7 thou/uL (4.0-11.0)
[2019-12-27 06:25] LABS: CALCIUM 7.4 mg/dL (8.5-10.1); CREATININE 2.1 mg/dL (0.6-1.3); MAGNESIUM 2.2 mg/dL (1.8-2.4); POTASSIUM 4.5 mmol/L (3.5-5.1)
--- NOTE | 2019-12-27 07:15 | NUR ---
CHANGE OF SHIFT, BEDSIDE REPORT GIVEN PATIENT SEEN AT BEDSIDE, IN BED ASLEEP ASSUMED PATIENT CARE
[2019-12-27 08:00] VITALS: BP 163/59
[2019-12-27 14:07] LABS: BODY FLUID LDH 70 IU/L (()); BODY FLUID PROTEIN 0.9 g/dL (())
[2019-12-27 16:00] VITALS: BP 152/49
[2019-12-27 20:00] VITALS: BP 172/61
[2019-12-27 23:48] VITALS: BP 155/63
[2019-12-27 23:50] VITALS: BP 158/45
--- NOTE | 2019-12-28 01:13 | NUR ---
PT ALERT ORIENTED. R CHEST TUBE TO H20 SEAL. SEROUS IN ATRUIM. MED SURG STATUS. HYDROXAZINE FOR ITCHING. UP TO BED FROM CHAIR WITH 1 PERSON ASSIST.
[2019-12-28 04:00] VITALS: BP 152/59
--- NOTE | 2019-12-28 07:10 | NUR ---
CHANGE OF SHIFT BEDSIDE REPORT GIVEN PATIENT SEEN AT BEDSIDE IN RECLINER ASLEEP ASSUMED PATIENT CARE
[2019-12-28 08:00] VITALS: BP 154/51
[2019-12-28 08:38] LABS: ABSOLUTE BASOPHILS 0.1 thou/uL (0.0-0.2); ABSOLUTE EOSINOPHILS 0.1 thou/uL (0.0-0.7); ABSOLUTE LYMPHOCYTES 1.1 thou/uL (0.8-5.3); ABSOLUTE MONOCYTES 0.6 thou/uL (0.0-1.2); ABSOLUTE NEUTROPHILS 5.2 thou/uL (1.6-8.1); BASOPHILS 0.9 %; EOSINOPHILS 0.9 %; HEMATOCRIT 25.7 % (42.0-52.0); HEMOGLOBIN 8.9 gm/dL (14.0-18.0); LYMPHOCYTES 16.1 %; MCH 30.2 pg (26.0-34.0); MCHC 34.5 g/dL (28.0-37.0); MCV 87.5 fL (80.0-100.0); MONOCYTES 8.4 %; MPV 8.7 fl. (7.2-11.1); NUCLEATED RBCS 0 /100WBC; PLATELET COUNT* 207 thou/uL (150-400); POLYS 73.7 %; RBC 2.94 mil/uL (4.50-6.00); RDW-CV 15.1 % (10.5-14.5)
[2019-12-28 08:47] LABS: CALCIUM 7.5 mg/dL (8.5-10.1); CREATININE 2.2 mg/dL (0.6-1.3); MAGNESIUM 2.2 mg/dL (1.8-2.4); POTASSIUM 4.3 mmol/L (3.5-5.1)
[2019-12-28 16:00] VITALS: BP 170/66
[2019-12-28 16:29] LABS: SOURCE PLEURAL
[2019-12-28 19:40] VITALS: BP 138/44
--- NOTE | 2019-12-28 21:46 | CON ---
[address] [address] CONSULTATION Name: DAIANA ROBERSON Ana Room: [address] IN M.R.#: [id number] Admission: 12/21/19 Attend Phys: Nereyda Fuentes MD Discharge: Date of : 52 Report #: [id number] THIS REPORT FOR: //name// cc: Romi Diaz MD, Katrina MD ~ THIS REPORT FOR: //name// CC: Romi Fuentes DATE OF SERVICE: 12/22/2019 REQUESTING PHYSICIAN: Consult has been requested by Dr. Fuentes. INDICATION FOR CONSULTATION: Recurrent pneumonia and pleural effusions. HISTORY OF PRESENT ILLNESS: This is a 69-year-old gentleman with past medical history as mentioned below. This does include a history of coronary artery disease as well as peripheral vascular disease. He has had an amputation on the right side. He also does have chronic kidney disease. His baseline creatinine is around 1.7. The patient also has clinical symptoms consistent with obstructive sleep apnea. The patient has not previously been diagnosed with obstructive sleep apnea. The patient has now been admitted to [facility] the third time within the last 1 month. He has had persistent bilateral pulmonary infiltrates, right greater than left. The patient also has had bilateral pleural effusions, right greater than left. He did have thoracentesis on the right side earlier. The protein on this fluid was 3, which will be consistent with a transudative pleural effusion. I do not, however, has an LDH on this fluid available. He has been tested for COVID-19 and was negative. He has also been tested for MRSA and his nasal swabs for MRSA have been positive. The patient has been treated with various antibiotics since the beginning of November. In summary, he has been treated with some antibiotics, but not beta-lactam antibiotics covering pseudomonas for any length of time. The patient did receive vancomycin for 6 days followed by 3 days of linezolid and then 1 day of vancomycin and therefore he has been treated for MRSA as well. Most recently, the patient has received Levaquin. There has been ongoing evaluation regarding whether linezolid or vancomycin will be a safer option for this patient. This is as discussed below. The patient was recommended admission to a [facility] facility. The patient, however, declined the same and was at home and has now been admitted again from home. The patient is reported to have had increase in shortness of breath. He has also had altered mental status and was drowsy at [place] [address] CONSULTATION Name: DAIANA ROBERSON Ana Room: [address] IN [facility]#: [id number] Admission: 12/21/19 Attend Phys: Nereyda Fuentes MD Discharge: Date of : 51 Report #: [id number] has a cough. At this time, he does not have much of a sputum production. He does not have chest pain. He has had on and off nasal discharge, which is at baseline. The patient does not have swelling of his left lower extremity, is not complaining of chest pain. He is not febrile. He does not complain of nausea, vomiting, diarrhea or constipation. He did not have any urinary complaints at this time. He has had a central line placed due to lack of IV access. REVIEW OF SYSTEMS: For 14 points is negative except as mentioned above. PAST MEDICAL HISTORY: Coronary artery disease. He has stents placed in his heart. I do not have details available. There is no known history of recent stents. He has just had an echocardiogram done, which shows a left ventricular ejection fraction of 60-65%. There is also left ventricular hypertrophy and the right heart pressures are not mentioned on the report; however, the right ventricle is reported to be unremarkable. Previous echocardiogram performed 3 weeks ago, which showed mild elevation in pulmonary artery systolic pressure to 47 with moderate aortic regurgitation, chronic kidney disease, his baseline creatinine is around 1.7, peripheral vascular disease. 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 SOCIAL HISTORY: There is no known history of smoking or heavy alcohol use or illegal drug use. CURRENT MEDICATIONS: List in [facility] reviewed. HOME MEDICATIONS: List also in [facility] reviewed. FAMILY HISTORY: Noncontributory. PHYSICAL EXAMINATION: GENERAL: Alert, awake and oriented; however, was somewhat limited in providing history. VITAL SIGNS: He has a pulse of 66 and a blood pressure of 154/46. He was on 2 liters oxygen via nasal cannula, oxygenating 98%. Respiratory rate was around 16-18. He was not in any distress, is afebrile with a temperature of 36.8 with a T-max of 37.1. His body mass index is elevated to 31.7. HEENT: Head is normocephalic and atraumatic. Pupils are equal and reactive. There is no throat erythema. He does have a narrow airway. NECK: Does not show raised JVP, asymmetry, mass or lymph nodes. CHEST: Symmetrical expansion on inspection and palpation. On auscultation, however, breath sounds are decreased at bilateral lung bases. Breath sound reduction is more at the right lung base than at the left lung base. HEART: Regular. There is no murmur. ABDOMEN: Soft and nontender. [address] [address] CONSULTATION Name: DAIANA ROBERSON Ana Room: [address] IN M.R.#: [id number] Admission: 12/21/19 Attend Phys: Nereyda Fuentes MD Discharge: Date of : 51 Report #: [id number] EXTREMITIES: Lower extremities show amputation on the right side. There is no edema and no calf tenderness on the left side. SKIN: Dry and intact. NEUROLOGICAL: He did move all extremities bilaterally equally and spontaneously with no focal deficit identified. LABORATORY DATA: I reviewed the patient's CT chest, compared with the patient's previous CT chest as well as x-rays. There are bilateral pleural effusions, right greater than left. There are bilateral infiltrates, right greater than left. These findings are persistent since the beginning of November. The findings were not present on his x-rays performed in August. The patient's lab work including CBC as well as chemistries in [facility] reviewed. Anemia is noted. The patient's creatinine on admission was 2.4 and then 2.1. He has tested positive for MRSA screen. ASSESSMENT AND PLAN: 1. Bilateral pleural effusions. The patient does have bilateral pleural effusions, right greater than left. The protein is not elevated on the last thoracentesis. I do not, however, have an LDH available. It appears more likely that this was primarily a transudative pleural effusion. Considering that the patient has an elevation in creatinine and earlier did have a further rise in his creatinine when he was given diuretics, I feel that it will be difficult to treat these pleural effusions with diuresis alone. Potentially, I can attempt to treat him with albumin as well as Lasix at the same time and then follow response. However, the likelihood is that these pleural effusions will persist. Certainly a component of pleural effusion, particularly on the right side, could also be parapneumonic empyema while unlikely is not completely ruled out. Considering this, I favor draining the pleural effusion at least on the right side again, thoracentesis may not be sufficient, and therefore, I favor placing a pigtail on the right side. The patient was on Plavix until yesterday. We may need to hold Plavix for several days before a pigtail could be safely inserted. We will review with the interventional radiologist in this regard. Meanwhile after discussion with Cardiology, we did hold Plavix. We will also follow along and assess later this week as to whether a thoracentesis on the left side is also indicated. 2. Pulmonary infiltrate/MRSA positive. The patient as above did receive adequate therapy for MRSA earlier. His nasal screen is still positive for MRSA. I considered various therapies for MRSA for this patient. Administering more vancomycin will have a significant risk of nephrotoxicity for this patient. On the other hand, there will be some risk of precipitating his serotonin syndrome if linezolid is administered. I considered the possibility of giving him Teflaro. However, the pharmacy advised me that it is not formulary in this hospital. For now, I decided to hold his vancomycin. I ordered a vancomycin random level as well as BMP to see the trend on his creatinine as well as to assess how fast he is clearing vancomycin. Potentially, if we are to avoid risk for vancomycin toxicity, we could give him linezolid; after holding Celexa; [address] [address] CONSULTATION Name: DAIANA ROBERSON Room: [address] IN M.R.#: [id number] Admission: 12/21/19 Attend Phys: Nereyda Fuentes MD Discharge: Date of : 51 Report #: [id number] however, with him being still on trazodone as well as Cymbalta, there will be some risk of having serotonin syndrome still. Regarding aspiration, I suspect that the patient is having ongoing aspiration and this likely is playing a role in persistence of these infiltrates. Therefore, I did request a video swallow to be performed. While sitting upright, there is penetration; however, there is no aspiration noted. I suspect that when the patient is not fully sitting up he does aspirate. 3. Chronic renal failure, note that the patient's baseline creatinine is around 1.7. 4. Coronary artery disease. Cardiology service is on the case. 5. Peripheral vascular disease. He has had an amputation of the right side. 6. Past medical history of anxiety and depression. 7. Hypersomnia. The patient has symptoms consistent with obstructive sleep apnea. He has not been previously diagnosed. Thanks for this consultation. <ELECTRONICALLY SIGNED> By: Fabian Matthews MD 12/28/19 [id number] Matthews MD /nt
[2019-12-29] VITALS: BP 134/37
[2019-12-29 06:00] LABS: HEMATOCRIT 23.8 % (42.0-52.0); HEMOGLOBIN 8.2 gm/dL (14.0-18.0); MCH 30.2 pg (26.0-34.0); MCHC 34.4 g/dL (28.0-37.0); MCV 87.8 fL (80.0-100.0); RBC 2.71 mil/uL (4.50-6.00); RDW-CV 15.1 % (10.5-14.5); WBC 8.4 thou/uL (4.0-11.0)
[2019-12-29 06:20] LABS: ALBUMIN 2.7 g/dL (3.4-5.0); CALCIUM 7.4 mg/dL (8.5-10.1); CREATININE 2.1 mg/dL (0.6-1.3); MAGNESIUM 2.2 mg/dL (1.8-2.4); TOTAL BILIRUBIN 0.2 mg/dL (<0.1-1.0); TOTAL PROTEIN 5.5 g/dL (6.4-8.2)
--- NOTE | 2019-12-29 06:53 | NUR ---
VSS. SEE MAR. SEE CHARTING.
[2019-12-29 08:00] VITALS: BP 139/45
--- NOTE | 2019-12-29 15:09 | NUR ---
Per , anticipate dc in a few days. CM to have [facility] skilled initiate insurance auth once pigtail cath is out. CM to fax updated clinical info
[2019-12-29 16:00] VITALS: BP 168/63
--- NOTE | 2019-12-29 18:11 | NUR ---
PT RN WAS AT LUNCH, THIS RN WAS WATCHING PTS. PT IV PUMP BEEPING. RN WENT IN TO FLUSH ANTIBIOTIC, CENTRAL LINE WITH AROUND 6 INCHES STICKING OUT FROM DRESSING. DRESSING WAS INTACT. THIS RN LOOKED UP CHEST XRAY FROM THIS AFTERNOON WHICH STATED LINE WAS IN SUPERIOR VENA CAVA. RN CALLED RADIOLOGY TO ASK RADIOLOGIST TO COMPARE FROM WHEN LINE WAS PUT IN TO TODAY. SUPERVISOR LAST MODEL DEPARTMENT STATED PHYSICIAN WOULD HAVE TO CALL TO HAVE RADIOLOGIST COMPARE. PAGED DR MURCIA EXPLAINED TO HIM ABOUT CENTRAL LINE AND WHAT SUPERVISOR LAST MODEL DEPARTMENT SAID. HE SAID HE WOULD CALL RADIOLOGIST HIMSELF. SPOKE WITH DR MURCIA. HE STATED RADIOLOGIST SAID THE LINE WAS IN THE CORRECT PLACE. WHEN RN CAME BACK FROM LUNCH HE SAID THAT THE LINE WAS THE SAME IT WAS THIS MORNING BEFORE XRAY. DR MURCIA SAID TO LEAVE LINE IT IS TODAY AND POSSIBLY SWITCH TO PERIPHERAL LINE TOMORROW IF PT STILL NEEDED ANTIBIOTICS AFTER TOMORROW PER DR ALATORRE. INFORMED RN AND CHARGE NURSE OF WHAT DR MURCIA SAID.
[2019-12-29 19:30] VITALS: BP 138/49
--- NOTE | 2019-12-29 19:31 | NUR ---
PT. AOX4, VSS, DENIES PAIN, WAS PLACED ON TELE MONITORING DURING THE SHIFT. CHEST TUBE ON R LUNG TO GRAVITY, LINE PATENT, SHIFT TOTAL OF 300 ML SEROUS DRAINAGE. HELD HUMALOG PER INDICATION AND PT. REFUSAL AT BLOOD SUGAR WAS 45 AT START OF SHIFT. HOURLY ROUNDING PERFORMED. CALL LIGHT AND PERSONAL BELONGINGS PLACED WITHIN REACH. PT. IN BED, WATCHING TV, IN NO APPARENT DISTRESS AT SHIFT CHANGE.
[2019-12-30] VITALS: BP 134/51
[2019-12-30 04:00] VITALS: BP 134/51
[2019-12-30 05:13] LABS: ABSOLUTE BASOPHILS 0.1 thou/uL (0.0-0.2); ABSOLUTE EOSINOPHILS 0.1 thou/uL (0.0-0.7); ABSOLUTE LYMPHOCYTES 1.7 thou/uL (0.8-5.3); ABSOLUTE MONOCYTES 0.6 thou/uL (0.0-1.2); ABSOLUTE NEUTROPHILS 5.1 thou/uL (1.6-8.1); BASOPHILS 1.1 %; EOSINOPHILS 1.8 %; HEMATOCRIT 23.2 % (42.0-52.0); HEMOGLOBIN 7.9 gm/dL (14.0-18.0); LYMPHOCYTES 22.6 %; MCHC 34.1 g/dL (28.0-37.0); MCV 87.8 fL (80.0-100.0); MONOCYTES 7.9 %; MPV 9.6 fl. (7.2-11.1); NUCLEATED RBCS 0 /100WBC; PLATELET COUNT* 173 thou/uL (150-400); POLYS 66.6 %; RBC 2.64 mil/uL (4.50-6.00); RDW-CV 14.9 % (10.5-14.5); WBC 7.6 thou/uL (4.0-11.0)
[2019-12-30 05:29] LABS: ALBUMIN 2.7 g/dL (3.4-5.0); CALCIUM 7.4 mg/dL (8.5-10.1); CREATININE 2.1 mg/dL (0.6-1.3); MAGNESIUM 2.1 mg/dL (1.8-2.4); POTASSIUM 4.2 mmol/L (3.5-5.1); TOTAL BILIRUBIN 0.2 mg/dL (<0.1-1.0); TOTAL PROTEIN 5.3 g/dL (6.4-8.2)
--- NOTE | 2019-12-30 07:31 | NUR ---
VSS. SEE MAR. SEE CHARTING. PT STABLE AND RESTED COMFORTABLY THROUGH THE NIGHT.
[2019-12-30 08:00] VITALS: BP 146/46
[2019-12-30 09:08] LABS: ANTI-DNA SCREEN 1 IU/mL (0-9); ANTI-RNP 0.2 AI (0.0-0.9)
[2019-12-30 11:56] VITALS: BP 144/57
--- NOTE | 2019-12-30 14:33 | NUR ---
Per laura Petersen following. Pt continues to need skilled at dc. CM to fax updated clinical info to [facility] once PT sees Pt.
[2019-12-30 15:50] VITALS: BP 154/55
[2019-12-30 17:46] LABS: CALCIUM 7.7 mg/dL (8.5-10.1); CREATININE 2.1 mg/dL (0.6-1.3)
[2019-12-30 17:50] LABS: POTASSIUM 5.3 mmol/L (3.5-5.1)
--- NOTE | 2019-12-30 19:10 | NUR ---
PT. VSS, AOX4, DENIES PAIN, CHEST TUBE IN PLACE AND PATENT, DRAINAGE CANNISTER REPLACED AT 1600. UP TO CHAIR WITH PROSTHESIS. HOURLY ROUNDING PERFORMED. CALL LIGHT AND PERSONAL BELONGINGS PLACED WITHIN REACH. PT. IN CHAIR, IN NO APPARENT PAIN OR DISCRESS AT SHIFT CHANGE.
[2019-12-30 19:30] VITALS: BP 146/54
[2019-12-31 08:00] VITALS: BP 141/43
[2019-12-31 11:45] LABS: CALCIUM 7.5 mg/dL (8.5-10.1); CREATININE 2.1 mg/dL (0.6-1.3); POTASSIUM 4.4 mmol/L (3.5-5.1)
[2019-12-31 12:05] VITALS: BP 141/55
--- NOTE | 2019-12-31 12:53 | NUR ---
CM spoke with pulm, Pt should be ready to dc in 1-2 days. CM faxed skilled referral to [facility] and asked that they initiate insurance auth if able to accept. Updated son on POC. Following.
--- NOTE | 2019-12-31 14:07 | PATH ---
[address] [address] PATHOLOGY RPT PROCEDURE Name: DAIANA ROBERSON Room: [address] IN .R.#: [id number] Admission: 12/21/19 Date of : 52 Discharge: Report #: [id number] Path Case #: [id number] Note [facility] Accession Number: [id number] TESTS RESULT FLAG UNITS REF RANGE LAB Clinician Provided Cytology Information No. of containers..01 Other (Miscellaneous) Source: 01 R. PLEURAL DIAGNOSIS: 02 R. PLEURAL NEGATIVE FOR MALIGNANT CELLS. REACTIVE MESOTHELIAL CELLS AND FEW INFLAMMATORY CELLS. THIS INTERPRETATION INCLUDES EVALUATION OF A CELL BLOCK. Signed out by: 02 Ralph Guerrero MD, Pathologist NPI- [id number] Performed by: 01 Radha Cowan, Respiratory Care Program Director ([facility]) Gross description: 01 25 ML, CLOUDY TORRES, 1 TP 1 CB /JOSE E 12/30/2019 1036 Local FLAG LEGEND: L-Low Normal,H-High Normal,LL-Alert Low,HH-Alert High <-Panic Low,>-Panic High,A-Abnormal,AA-Critical Abnormal Performed at: [address] [place] [address] Jeremiah Blanchard MD, [address] [place] [address] [facility], [place] [address] Ralph Guerrero MD, Specimen Comment: A courtesy copy of this report has been sent to [phone] Specimen Comment: Report sent to Specimen Comment: A duplicate report has been generated due to demographic updates. Performed at: [address], [place], [place] [id number] MD Jeremiah Blanchard MD Phone: [phone]
[2019-12-31 16:39] VITALS: BP 133/48
--- NOTE | 2019-12-31 19:53 | NUR ---
RECEIVED REPORT FROM LEONORA MOLINA. ASUSUMED CARE OF PT AROUND 0730. PT A&OX4. AM ASSESSMENT AND VITALS COMPLETED CHARTED. MEDS PER EMAR. MEDICAL TRANSCRIPTION RADIOLOGY IN PLACE TRACING CHARTED. CHEST TUBE REMOVED AROUND [address] ALATORRE IN THE ROOM. PT DID COMPLAIN OF WORK OF BREATHING THIS EVENING - DR ALATORRE CALLED AND STAT CHEST XRAY ORDERED. RESULTS JUST IN - WAITING FOR A CALL BACK FROM DR ALATORRE. PT WITH NO OTHER COMPLAINTS THIS SHIFT. APPETITE POOR. PT TURNING Q2HRS FOR COMFORT. FALL PRECAUTIONS IN PLACE. CALL LIGHT IS WITHIN REACH, HOURLY ROUNDING PERFORMED.
[2020-01-01 07:07] LABS: ALBUMIN 3.1 g/dL (3.4-5.0); CALCIUM 7.6 mg/dL (8.5-10.1); CREATININE 2.2 mg/dL (0.6-1.3); MAGNESIUM 2.1 mg/dL (1.8-2.4); PHOSPHORUS* 5.5 mg/dL (2.5-4.9); POTASSIUM 4.4 mmol/L (3.5-5.1)
[2020-01-01 08:00] VITALS: BP 152/48
[2020-01-01 12:00] VITALS: BP 150/46
--- NOTE | 2020-01-01 13:00 | NUR ---
Per Dr, Pt ready when pulm signs off. CM spoke with pulm, renal consulted. Continue to await insurance auth
--- NOTE | 2020-01-01 14:11 | CON ---
[address] [address] CONSULTATION Name: DAIANA ROBERSON Ana Room: [address] IN M.R.#: [id number] Admission: 12/21/19 Attend Phys: Nereyda Fuentes MD Discharge: Date of : 51 Report #: [id number] THIS REPORT FOR: //name// cc: Romi Diaz MD, Katrina MD ~ THIS REPORT FOR: //name// CC: Romi Fuentes DATE OF SERVICE: 12/31/2019 CONSULTING PHYSICIAN: Dr. Fuentes. REASON FOR CONSULTATION: Elevated creatinine. HISTORY OF PRESENT ILLNESS: A 69-year-old gentleman who was admitted with respiratory failure and recurrent pleural effusions. He is currently being followed by Pulmonary. He had a chest tube removed today and there is a concern for him having recurrent fluid overload and volume overload, necessitating chronic PleurX catheter, which we hope to avoid. The patient himself denies any preexisting history of kidney disease. He was admitted with a creatinine of 2.4 and it is 2.1 today. He has received some intermittent doses of diuretics along with albumin. His BUN on admission was 52 and it is 47 today. He has had good response to the Lasix. He denies any regular NSAID use and again has no outpatient machine trimmer. REVIEW OF SYSTEMS: Constitutional, psych, heme, eyes, ENT, respiratory, cardiac, GI, , endocrine, all negative except as documented above. PAST MEDICAL HISTORY: Depression, anxiety, seizures, history of right BKA, and diabetes type 2 since 2007 along with hypertension since 2007. There is a mention of a history of dementia, history of diastolic heart failure, coronary artery disease, CVA, and essential tremors. FAMILY HISTORY: Not pertinent in 69-year-old gentleman. SOCIAL HISTORY: No tobacco. CURRENT MEDICATIONS: Reviewed. PHYSICAL EXAMINATION: VITAL SIGNS: Blood pressure is 141/55, pulse 78, respirations 17, and temperature 36.3. GENERAL: No acute distress. EYES: [place] [address] CONSULTATION Name: DAIANA ROBERSON Room: [address] IN [facility].#: [id number] Admission: 12/21/19 Attend Phys: Nereyda Fuentes MD Discharge: Date of : 51 Report #: [id number] EARS: Externally normal. NECK: Supple. CARDIOVASCULAR: Regular rate. LUNGS: Diminished breath sounds. ABDOMEN: Soft. MUSCULOSKELETAL: Right BKA with left lower extremity edema. PSYCHIATRIC: Awake and alert. LABORATORY DATA: White cell count 7.6, hemoglobin 7.9, and platelets 173. Sodium 144, potassium 4.4, chloride 107, bicarbonate 25, BUN 47, creatinine 2.1, glucose 68, and calcium 7.5. ASSESSMENT: 1. Chronic kidney disease stage 3. Creatinine at baseline appears to be somewhere between about 1.8 and 2.2. On 11/28/2019, creatinine was 2.7. On 12/21/2019, UA was okay. On 12/02/2019, kidney ultrasound was okay. 2. Hypertension. 3. Diabetes type 2 since 2008 along with hypertension since 2007. 4. Diastolic heart failure with normal ejection fraction. 5. Coronary artery disease. 6. History of cerebrovascular accident. 7. Right below-knee amputation. 8. Hypoalbuminemia with albumin of 2.7. 9. Pulmonary infiltrates with pleural effusion. PLAN: 1. Check left lower extremity Doppler. 2. On prednisone, defer to pulmonary. 3. Check urine mngnjkc-ha-pnrkhhnbds ratio. 4. Start IV Lasix 40 mg twice a day. He has good urine output thus far. We will start the Lasix to help prevent recurrent fluid overload and pleural effusions with the hope to avoid chronic need for PleurX drainage catheter. 5. We will check another renal ultrasound and check a TSH as well. Thus far, BUN and creatinine are fairly stable and may need to allow these to increase to some degree to help manage volume status. Thank you for requesting my opinion in the care and management of this patient. Case was discussed with Dr. Matthews. <ELECTRONICALLY SIGNED> By: Miranda Rodríguez MD 01/01/20 1411 [id number] [id number] Rodríguez MD /nt
[2020-01-01 16:00] VITALS: BP 140/44
[2020-01-01 17:27] LABS: CALCIUM 7.8 mg/dL (8.5-10.1); CREATININE 2.2 mg/dL (0.6-1.3); MAGNESIUM 2.3 mg/dL (1.8-2.4); POTASSIUM 5.2 mmol/L (3.5-5.1)
[2020-01-01 20:15] VITALS: BP 148/84
--- NOTE | 2020-01-01 23:21 | NUR ---
ASSUMED CARE OF PT AT 1900. PT IS ALERT AND ORIENTED. VSS. PERRLA. NO COMPLAINTS OF PAIN. PT IS IN SINUS RYTHM ON THE TELEMETRY. PT IS RESTING COMFORTABLY IN BED. RESPIRATIONS ARE EVEN AND NONLABORED. WILL CONTINUE TO MONITOR PT.
[2020-01-02] VITALS: BP 133/43
[2020-01-02 04:00] VITALS: BP 137/77
[2020-01-02 06:25] LABS: ABSOLUTE BASOPHILS 0.1 thou/uL (0.0-0.2); ABSOLUTE EOSINOPHILS 0.2 thou/uL (0.0-0.7); ABSOLUTE LYMPHOCYTES 1.2 thou/uL (0.8-5.3); ABSOLUTE MONOCYTES 0.8 thou/uL (0.0-1.2); ABSOLUTE NEUTROPHILS 3.1 thou/uL (1.6-8.1); EOSINOPHILS 4.5 %; HEMATOCRIT 24.3 % (42.0-52.0); HEMOGLOBIN 8.4 gm/dL (14.0-18.0); LYMPHOCYTES 21.4 %; MCH 30.1 pg (26.0-34.0); MCHC 34.5 g/dL (28.0-37.0); MCV 87.4 fL (80.0-100.0); MONOCYTES 15.2 %; NUCLEATED RBCS 0 /100WBC; PLATELET COUNT* 154 thou/uL (150-400); POLYS 57.9 %; RBC 2.78 mil/uL (4.50-6.00); RDW-CV 15.1 % (10.5-14.5); WBC 5.4 thou/uL (4.0-11.0)
[2020-01-02 06:34] LABS: CALCIUM 7.8 mg/dL (8.5-10.1); CREATININE 2.5 mg/dL (0.6-1.3); MAGNESIUM 2.3 mg/dL (1.8-2.4)
[2020-01-02 06:43] LABS: POTASSIUM 4.2 mmol/L (3.5-5.1)
[2020-01-02 07:30] VITALS: BP 145/45
[2020-01-02 13:24] VITALS: BP 108/79
--- NOTE | 2020-01-02 15:12 | NUR ---
CM spoke with admissions from [facility], continue to await insurance auth. Per renal and pulm note, Pt is not medically stable to dc.
--- NOTE | 2020-01-02 19:15 | NUR ---
RECEVIED REPORT FROM DEANNA RN. ASSUMED CARE OF PT AROUND 0715. PT A&O X4. AM ASSESSMENT AND VITALS COMPLETED CHARTED. FLORICULTURE PROFESSOR IN PLACE TRACING CHARTED. MEDS PER EMAR. PT WITH NO PAIN OR DISCOMFORT THIS SHIFT. ABLE TO GET UP TO BEDSIDE COMMODE WITH ASSISTANCE. BLADDER SCANS ADDED THIS AFTERNOON PER NEPHROLOGY. PT WAITING FOR AUTH TO GO SKILLED. PT CURRENTLY RESTING IN BEDSIDE CHAIR. FALL PRECAUTIONS IN PLACE. CALL LIGHT IS WITHIN REACH. HOURLY ROUNDING PERFORMED.
[2020-01-02 19:33] LABS: CALCIUM 7.5 mg/dL (8.5-10.1); CREATININE 2.3 mg/dL (0.6-1.3); MAGNESIUM 2.2 mg/dL (1.8-2.4); POTASSIUM 4.8 mmol/L (3.5-5.1)
[2020-01-02 19:49] VITALS: BP 144/41
[2020-01-02 20:00] VITALS: BP 140/43
[2020-01-03] VITALS: BP 150/62
[2020-01-03 04:00] VITALS: BP 146/71
--- NOTE | 2020-01-03 06:37 | NUR ---
ASSUMED PT CARE AT 1905. NURSING ASSESSMENT COMPLETED AT START OF SHIFT. PT TRACING SR/ST ON PHOTOENGRAVING SUPERVISOR. PRN PAIN MEDICATION ADMINISTERED AND EFFECTIVE FOR PAIN CONTROL. SEE EMAR FOR DOCUMENTATION. HOURLY ROUNDING COMPLETED. Q2H REPOSITIONING COMPLETED. CALL LIGHT WITHIN REACH.
--- NOTE | 2020-01-03 06:39 | NUR ---
ASSUMED PT CARE AT 1905. NURSING ASSESSMENT COMPLETED AT START OF SHIFT. PT TRACING SR PVCS/BIGEMINY THIS SHIFT. VOICED NO CONCERNS THIS SHIFT. HOURLY ROUNDING COMPLETED. HIGH FALL PRECAUTIONS IN PLACE. CALL LIGHT WITHIN REACH.
[2020-01-03 07:00] LABS: CREATININE 2.3 mg/dL (0.6-1.3); MAGNESIUM 2.2 mg/dL (1.8-2.4); POTASSIUM 4.3 mmol/L (3.5-5.1)
[2020-01-03 08:00] VITALS: BP 176/65
[2020-01-03 12:00] VITALS: BP 139/76
[2020-01-03 16:00] VITALS: BP 144/57
[2020-01-03 20:00] VITALS: BP 147/49
[2020-01-04] VITALS: BP 150/61
[2020-01-04 04:30] VITALS: BP 153/60
--- NOTE | 2020-01-04 05:08 | NUR ---
ASSUMED PT CARE AT APPROX 1930. PT IS AWAKE AND ORIENTED X4. PT IS TRACING SR ON THE COW RIDER. ASSESSMENT DONE AND CHARTED. PT IS SHORT OF AIR WITH ACTIVITY, NO DESATURATIONS NOTED, PT IS NOT IN ANY RESPIRATORY DISTRESS. PT IS ABLE TO SLEEP SOME. CALL LIGHT WITHIN REACH. HOURLY ROUNDING DONE FOR PT SAFETY. HIGH FALL PRECAUTIONS IN PLACE.
[2020-01-04 05:19] LABS: CALCIUM 7.8 mg/dL (8.5-10.1); CREATININE 2.2 mg/dL (0.6-1.3); POTASSIUM 4.4 mmol/L (3.5-5.1)
[2020-01-04 08:00] VITALS: BP 165/61
[2020-01-04 14:14] VITALS: BP 142/48
[2020-01-04 16:00] VITALS: BP 132/56
[2020-01-04 20:00] VITALS: BP 139/60
[2020-01-05] VITALS: BP 103/52
[2020-01-05 05:42] VITALS: BP 135/61
--- NOTE | 2020-01-05 06:00 | NUR ---
ASSUMED PT CARE AT APPROX 1930. PT IS AWAKE AND ORIENTED X4, WITH PERIODS OF CONFUSION, PT IS EASILY REORIENTED. ULTRASOUND TECHNOLOGIST SONOGRAPHER IS TRACING AFIB. NO DESATURATIONS NOTED ON 3L OF O2/NC. NO ACUTE CHANGES OVERNIGHT. MEDS GIVEN PER MAR. CALL LIGHT WITHIN REACH, HOURLY ROUNDING DONE FOR PT SAFETY. HIGH FALL PRECAUTIONS IN REACH.
[2020-01-05 06:03] LABS: CALCIUM 7.9 mg/dL (8.5-10.1); CREATININE 2.3 mg/dL (0.6-1.3); POTASSIUM 4.7 mmol/L (3.5-5.1)
[2020-01-05 08:00] VITALS: BP 123/72
--- NOTE | 2020-01-05 08:28 | NUR ---
CM asked rehab consultant to have PT/OT see Pt today, anticipate that Pt will be medically stable to dc soon. CM to fax updated clinicals to [facility] and fax a referral to [facility], if they will have skilled beds available within the next few days.
--- NOTE | 2020-01-05 11:39 | NUR ---
Per Dr, renal and pulm continuing to follow. Pt needs diuresed prior to dc, if all goes well, anticipate dc in a few days(?) Faxed updated clinicals to [facility]. Faxed new referral to [facility]. CM to ask SNF to work on insurance auth once Pt is becoming more medically stable. Following.
[2020-01-05 12:00] VITALS: BP 121/56
--- NOTE | 2020-01-05 14:45 | NUR ---
PT IS AOX4 LETHARGIC AND SLEEPY. BLOOS SUGAR IS 149 AT 0700. INSULIN GIVEN. THEN BLOOD SUGAR INTHE 70S AT LUNCH TIME. PT HAS POOR APPETITE. NO INSULIN GIVEN AT LUNCH TIME. PT WAS ASSISTED TO THE RESTROOM BY THIS NURSE WITHOUT OXYGEN. PT REQUESTED TO GO TO RESTROOM IN ORDER TO STAY ACTIVE. ON HIS WAS BACK, PT OXYGEN WENT DOWN IN THE 70S. PT WAS ASSSITED TO BED AND BREATHING TREATMENT WAS GIVEN. O2 SAT ABOVE 95% AFTER BREATHING TREATMENT. PULMONOLOGY WAS NOTIFEIED. LASIX ONTIME DONE ORDERED. COVID TESTING DONE FOR SNIF PLACEMENT. AWAITING ON RESULT. PT LYING IN BED NO FURTHER COMPLAINT. WILL PROCEED WITH ORDERS
[2020-01-05 17:41] VITALS: BP 147/63
--- NOTE | 2020-01-05 18:39 | NUR ---
PT BLADDER SCANNED. >550 CC OF URINE. BROWN CATHETER INSERT ORDER FORM NEPHROLOGY
[2020-01-05 19:15] LABS: URINE BILIRUBIN NEGATIVE (Negative); URINE BLOOD NEGATIVE (Negative); URINE CLARITY CLEAR; URINE COLOR YELLOW; URINE GLUCOSE-RANDOM NEGATIVE (Negative); URINE KETONES NEGATIVE (Negative); URINE LEUKOCYTES-REFLEX NEGATIVE (Negative); URINE NITRITE-REFLEX NEGATIVE (Negative); URINE PROTEIN 1+ (Negative); URINE SPECIFIC GRAVITY 1.025 (1.005-1.030); URINE UROBILINOGEN 0.2 E.U./dl (0.2-1.0)
[2020-01-05 20:00] VITALS: BP 143/66
[2020-01-06] VITALS: BP 136/52
[2020-01-06 04:00] VITALS: BP 132/52
--- NOTE | 2020-01-06 05:41 | NUR ---
ASSUMED PT CARE AT APPROX 1930. PT IS LETHARGIC BUT IS AROUSABLE, ORIENTED X4 WITH PERIODS OF FORGETFULNESS BUT IS EASILY REORIENTED. PT IS TRACING SR ON THE ENVIRONMENTAL FIELD TEAM MEMBER. NO ACUTE CHANGES OVERNIGHT. NO DESATURATIONS NOTED ON 3L OF O2/NC. CALL LIGHT WITHIN REACH. HOURLY ROUNDING DONE FOR PT SAFETY. HIGH FALL PRECAUTIONS IN PLACE.
[2020-01-06 08:00] VITALS: BP 136/56
[2020-01-06 09:40] LABS: CALCIUM 7.9 mg/dL (8.5-10.1); CREATININE 2.5 mg/dL (0.6-1.3); POTASSIUM 4.3 mmol/L (3.5-5.1)
[2020-01-06 12:03] VITALS: BP 129/54
[2020-01-06 12:23] LABS: ABSOLUTE EOSINOPHILS 0.2 thou/uL (0.0-0.7); ABSOLUTE LYMPHOCYTES 0.9 thou/uL (0.8-5.3); ABSOLUTE MONOCYTES 0.7 thou/uL (0.0-1.2); ABSOLUTE NEUTROPHILS 2.5 thou/uL (1.6-8.1); BASOPHILS 0.6 %; EOSINOPHILS 5.7 %; HEMATOCRIT 20.5 % (42.0-52.0); LYMPHOCYTES 20.8 %; MCH 30.2 pg (26.0-34.0); MCV 88.7 fL (80.0-100.0); MONOCYTES 15.2 %; MPV 11.2 fl. (7.2-11.1); NUCLEATED RBCS 0 /100WBC; PLATELET COUNT* 102 thou/uL (150-400); POLYS 57.7 %; RBC 2.32 mil/uL (4.50-6.00); RDW-CV 15.3 % (10.5-14.5); WBC 4.3 thou/uL (4.0-11.0)
[2020-01-06 12:37] LABS: DIRECT BILIRUBIN 0.1 mg/dL (<0.1-0.3); TOTAL BILIRUBIN 0.3 mg/dL (<0.1-1.0); TOTAL PROTEIN 6.6 g/dL (6.4-8.2)
--- NOTE | 2020-01-06 13:14 | NUR ---
pt is aox4. on 2 l nc. tracing sr on network development coordinator. denies pain. hammond in place. nephadryan zayas came in and ordered some labs which were drawn and sent to laboratory. urine collected from hammond again for antigens testing. pt hgb 7.0 . this was communicate to the docotr by the nurse. pt is out of bed to chair with assisstance. poor appetite. accucheck. insulin given as ordered. will continue to monitor pt
[2020-01-06 16:11] VITALS: BP 127/43
[2020-01-06 16:58] LABS: ABSOLUTE EOSINOPHILS 0.2 thou/uL (0.0-0.7); ABSOLUTE LYMPHOCYTES 1.1 thou/uL (0.8-5.3); ABSOLUTE MONOCYTES 0.7 thou/uL (0.0-1.2); ABSOLUTE NEUTROPHILS 2.2 thou/uL (1.6-8.1); EOSINOPHILS 5.8 %; HEMATOCRIT 20.9 % (42.0-52.0); HEMOGLOBIN 7.1 gm/dL (14.0-18.0); LYMPHOCYTES 26.1 %; MCH 29.7 pg (26.0-34.0); MCHC 33.8 g/dL (28.0-37.0); MCV 87.9 fL (80.0-100.0); MONOCYTES 15.3 %; MPV 10.8 fl. (7.2-11.1); NUCLEATED RBCS 0 /100WBC; PLATELET COUNT* 110 thou/uL (150-400); POLYS 51.8 %; RBC 2.37 mil/uL (4.50-6.00); RDW-CV 15.4 % (10.5-14.5); WBC 4.3 thou/uL (4.0-11.0)
[2020-01-06 17:05] LABS: CALCIUM 7.8 mg/dL (8.5-10.1); CREATININE 2.6 mg/dL (0.6-1.3); MAGNESIUM 2.8 mg/dL (1.8-2.4); POTASSIUM 4.6 mmol/L (3.5-5.1)
--- NOTE | 2020-01-06 17:18 | NUR ---
PT HAS POOR OUTPUT FROM BROWN CATHETER. PT HGB IS 7.0. H&H AND GUAIC WAS ORDERED. HGB STABLE AT 7.1. PT HAS NOT HAD A BOWEL MOVEMENT DURING THIS SHIFT. PT OUT OF BED TO CHAIR AT MEALS TIME. ACCUCHECK. LABS ARE BEING MONITORED. PT IS VERY LETHARGIC. NO FURTHER COMPLAINT. WILL CONTINUE TO MONITOR
--- NOTE | 2020-01-06 18:55 | NUR ---
blood sugar rechecked after diner 95
[2020-01-06 20:00] VITALS: BP 132/62
[2020-01-07] VITALS (7 sets, daily range): BP systolic 140–165; BP diastolic 50–67
[2020-01-07 04:53] LABS: MCHC 34.3 g/dL (28.0-37.0); MCV 87.6 fL (80.0-100.0); MPV 10.5 fl. (7.2-11.1); RBC 2.28 mil/uL (4.50-6.00); WBC 4.5 thou/uL (4.0-11.0)
[2020-01-07 05:02] LABS: HEMOGLOBIN 6.8 gm/dL (14.0-18.0)
[2020-01-07 05:07] LABS: CALCIUM 7.9 mg/dL (8.5-10.1); CALCIUM 8.1 mg/dL (8.5-10.1); CREATININE 2.6 mg/dL (0.6-1.3); CREATININE 2.7 mg/dL (0.6-1.3); POTASSIUM 4.6 mmol/L (3.5-5.1); POTASSIUM 4.8 mmol/L (3.5-5.1)
--- NOTE | 2020-01-07 05:54 | NUR ---
PATIENT NOT PROGRESSING TOWARDS GOALS: PATIENT LETHARGIC THIS SHIFT. REPORTS FEELING "WEAK AND TIRED." PATIENT'S HBG LOW THIS SHIFT, ORDERS RECEIVED. PATIENT DENIES PAIN AND DISCOMFORT. CALL LIGHT WITHIN REACH
[2020-01-07 06:24] LABS: ABSOLUTE EOSINOPHILS 0.3 thou/uL (0.0-0.7); ABSOLUTE LYMPHOCYTES 1.1 thou/uL (0.8-5.3); ABSOLUTE MONOCYTES 0.6 thou/uL (0.0-1.2); ABSOLUTE NEUTROPHILS 2.5 thou/uL (1.6-8.1); BASOPHILS 0.8 %; EOSINOPHILS 6.5 %; HEMATOCRIT 20.1 % (42.0-52.0); LYMPHOCYTES 23.6 %; MCH 29.8 pg (26.0-34.0); MCHC 33.9 g/dL (28.0-37.0); MCV 87.9 fL (80.0-100.0); MPV 10.6 fl. (7.2-11.1); NUCLEATED RBCS 0 /100WBC; PLATELET COUNT* 117 thou/uL (150-400); POLYS 55.1 %; RBC 2.29 mil/uL (4.50-6.00); RDW-CV 15.1 % (10.5-14.5); WBC 4.5 thou/uL (4.0-11.0)
[2020-01-07 06:28] LABS: HEMOGLOBIN 6.8 gm/dL (14.0-18.0)
--- NOTE | 2020-01-07 11:29 | NUR ---
Faxed updated clinicals to [facility], anticipate that Pt may be medically stable to dc in a few days. CM to update [facility] tomorrow with tentative dc date and request that they initiate insurance auth. Following.
[2020-01-07 17:30] LABS: HEMATOCRIT 23.3 % (42.0-52.0); HEMOGLOBIN 7.9 gm/dL (14.0-18.0)
--- NOTE | 2020-01-07 18:35 | NUR ---
ASSUMED CARE OF PATIENT AT 0730. ALERT BUT CONFUSED. PATIENT VERY LETHERGIC BUT EASILY AWOKEN. PATIENT GIVEN 1 UNIT OF BLOOD, HGB IMPROVED ON LAB RECHECK. HELP GUAIFENSEN/CODEINE SYRUP RELATED TO PATIENTS STATE OF LETHARGY AND HE HAD NO COUGH THROUGHOUT THE SHIFT. BROWN IN PLACE AND DRAINING DEPENDENTLY. LIGHT YELLOW URINE NOTED. PATIENT WAS UNABLE TO HOLD HIS UTENSILS FOR MEALS, ASSISTED HIM WITH FEEDING, HE WOULD NOT EAT BUT A FEW BITES OF JELLO IN THE AFTERNOON. FALL PRECAUTIONS IN PLACE CALL LIGHT WITHIN REACH. HOURLY ROUNDS COMPLETED. WILL CONTINUE WITH PLAN OF CARE.
[2020-01-08] VITALS (13 sets, daily range): BP systolic 109–163; BP diastolic 40–72
[2020-01-08 05:48] LABS: HEMATOCRIT 26.2 % (42.0-52.0); HEMOGLOBIN 8.9 gm/dL (14.0-18.0); MCH 29.7 pg (26.0-34.0); MCHC 33.9 g/dL (28.0-37.0); MCV 87.6 fL (80.0-100.0); MPV 9.7 fl. (7.2-11.1); NUCLEATED RBCS 0 /100WBC; PLATELET COUNT* 144 thou/uL (150-400); RBC 2.99 mil/uL (4.50-6.00); RDW-CV 14.7 % (10.5-14.5)
[2020-01-08 06:00] LABS: CALCIUM 8.1 mg/dL (8.5-10.1); CREATININE 2.5 mg/dL (0.6-1.3); MAGNESIUM 2.5 mg/dL (1.8-2.4); POTASSIUM 4.8 mmol/L (3.5-5.1)
[2020-01-08 06:28] LABS: ABSOLUTE EOSINOPHILS 0.2 thou/uL (0.0-0.7); ABSOLUTE LYMPHOCYTES 0.3 thou/uL (0.8-5.3); ABSOLUTE MONOCYTES 0.8 thou/uL (0.0-1.2); ABSOLUTE NEUTROPHILS 7.7 thou/uL (1.6-8.1); PLATELET ESTIMATE DECREASED
[2020-01-08 06:29] LABS: ANISOCYTOSIS Occasional; HYPOCHROMASIA 1+
--- NOTE | 2020-01-08 06:46 | NUR ---
PATIENT NOT PROGRESSING TOWARDS GOALS: NOW REQUIRING 5L O2 NC TO MAINTAIN O2 SATURATION >92%. HIS COUGH IS WORSENING, ESPECIALLY AFTER TAKING IN THIN LIQUIDS. MEDICATIONS CRUSHED THIS MORNING AND GIVEN IN PUDDING AND PATIENT TOLERATED THAT BETTER WITH LESS COUGHING. PATIENT HAD CHEST XRAY THIS MORNING-RESULTS PENDING. PATIENT MADE NPO AND SPEECH CONSULT ORDERED TO RE-EVALUATE PATIENT FOR ASPIRATION, ALTHOUGH HIS PREVIOUS EVALUATION THIS MONTH CLEARED HIM FOR THIN LIQUIDS.
[2020-01-08 12:06] LABS: PCO2 46.1 mmHg (35.0-45.0); PO2 83.5 mmHg (75.0-100.0); pH 7.285 (7.340-7.450)
--- NOTE | 2020-01-08 12:43 | NUR ---
Pt transferring to ICU
--- NOTE | 2020-01-08 13:30 | NUR ---
ASSUMED PT CARE AT 0730. ASSESSMENT COMPLETED CHARTED. UNABLE TO MAKE NEEDS KNOWN. RESTING IN BED ALL MORNING. TOOK PERSUASION FOR HIM TO TAKE HIS MEDICATIONS. PT LETHARGIC AND HARD TO AWAKE AND WEAK. NOTICED DECLINE IN STATUS AND SENT PT TO ICU. GAVE REPORT TO ICU NURSE AND TRANSPORTED PT DOWN WITH ALL BELONGINGS AND BROUGHT BACK HEART MONITOR TO FLOOR.
[2020-01-08 14:07] LABS: GLOBULIN TOTAL 2.6 g/dL (2.2-3.9); M-SPIKE Not Observed g/dL (Not Observed)
--- NOTE | 2020-01-08 18:55 | NUR ---
PATIENT TRANSFERRED FROM 2W AFTER PATIENT BECAME LETHARGIC AND HARD TO AROUSE. PATIENT PLACED ON THE MONITORS AND DRIPS STARTED PER ORDERS. PATIENT COMFORTABLE IN BED. PATIENT IS ON THE BIPAP AND STILL LETHARGIC AND HARD TO AROUSE. ASSESMENT CHARTED. NO FURHTER CONCERNS AT THIS TIME. WILL CONTINUE OT MONITOR AND CARE PER PLAN OF CARE.
[2020-01-09] VITALS (18 sets, daily range): BP systolic 101–154; BP diastolic 35–60
--- NOTE | 2020-01-09 06:23 | NUR ---
VITALS STABLE, AFEBRILE. REMAINS ON BIPAP. UNABLE TO ASSESS NEURO STATUS DUE TO PT BEING LETHARGIC, MUMBLES INCOMPREHENSIBLE WORDS WHEN STIMULATED. WAS LIKE THIS UP UNTIL ABOUT 10 MINS AGO, WHEN HE WOKE UP AND TOOK HIS BIPAP OFF. WHEN ASKED WHY HE TOOK HIS BIPAP OFF, HE REPLIED "BECAUSE I'M LAZY". ABLE TO REORIENT EASILY, ABLE TO TELL ME HIS NAME ONLY. ASKED WHY HE IS IN THE ICU. OTHERWISE UNEVENTFUL NIGHT. NO BM, 900CC UOP. REMAINS ON LASIX GTT. Q2 TURNS FOR SKIN INTEGRITY. CALL LIGHT WITHIN REACH. WILL CONTINUE MONITORING.
--- NOTE | 2020-01-09 09:00 | NUR ---
PT PULLED IV OUT. UNABLE TO OBTAIN ADDITIONAL IV ACCESS AFTER MULTIPLE ATTEMPTS. UNABLE TO DRAW LABS AT THIS TIME. WILL CONTINUE TO ATTEMPT TO OBTAIN ADDITIONAL ACCESS AND LABS
[2020-01-09 09:02] LABS: ABSOLUTE BASOPHILS 0.1 thou/uL (0.0-0.2); ABSOLUTE EOSINOPHILS 0.3 thou/uL (0.0-0.7); ABSOLUTE MONOCYTES 0.9 thou/uL (0.0-1.2); ABSOLUTE NEUTROPHILS 8.7 thou/uL (1.6-8.1); BASOPHILS 0.6 %; HEMATOCRIT 24.3 % (42.0-52.0); HEMOGLOBIN 8.2 gm/dL (14.0-18.0); LYMPHOCYTES 9.1 %; MCH 29.1 pg (26.0-34.0); MCHC 33.6 g/dL (28.0-37.0); MCV 86.6 fL (80.0-100.0); MONOCYTES 8.3 %; MPV 9.4 fl. (7.2-11.1); NUCLEATED RBCS 0 /100WBC; PLATELET COUNT* 170 thou/uL (150-400); WBC 11.1 thou/uL (4.0-11.0)
[2020-01-09 09:17] LABS: BE -3.3 mmol/L (-2 to +3); PCO2 47.7 mmHg (35.0-45.0); PO2 95.8 mmHg (75.0-100.0); pH 7.302 (7.340-7.450)
--- NOTE | 2020-01-09 09:25 | NUR ---
PT SATS HAD BEEN IN MID 90S ON 4L O2. WHEN PT SAT UP UPRIGHT IN BED HIS SATS DROPPED TO 74% PRIOR TO TAKING A BITE AND HAVING ONLY SIPS OF SODA. PT MADE NPO. PT PLACED BACK ON BIPAP
[2020-01-09 10:03] LABS: PLATELET ESTIMATE ADEQUATE
[2020-01-09 11:27] LABS: ALBUMIN 2.8 g/dL (3.4-5.0); CALCIUM 7.4 mg/dL (8.5-10.1); CREATININE 2.3 mg/dL (0.6-1.3); MAGNESIUM 2.5 mg/dL (1.8-2.4); PHOSPHORUS* 4.5 mg/dL (2.5-4.9); POTASSIUM 3.9 mmol/L (3.5-5.1); TOTAL BILIRUBIN 0.3 mg/dL (<0.1-1.0); TOTAL PROTEIN 6.4 g/dL (6.4-8.2)
--- NOTE | 2020-01-09 12:57 | NUR ---
ICU rounds: Pt better, on lasix gtt. CM updated Natasha at [facility] yesterday, continue to plan skilled at dc.
[2020-01-09 17:07] LABS: URINE PROTEIN (MG/DL) 66.2 mg/dL (Not Estab.)
--- NOTE | 2020-01-09 23:32 | NUR ---
EVENING PO MEDICATION HELD. ATTEMPTED TO GET PATIENT TO SWALLOW A SMALL SPOONFUL OF PUDDING AND HE BEGAN COUGHING WHEN SWALLOWING. I DID NOT FEEL IT WAS SAFE OR APPROPRIATE TO TRY AND ADMINISTER ANY MEDICATION FOR THE RISK OF ASPIRATION. PATIENT CONTINUES TO BE ON ASPIRATION PRECAUTIONS. TM
[2020-01-10] VITALS (13 sets, daily range): BP systolic 135–162; BP diastolic 45–123
--- NOTE | 2020-01-10 07:30 | NUR ---
ASSESSMENTS CHARTED. PATIENT CONFUSED FOR THE MAJORITY OF THE NIGHT BUT WAS ABLE TO BE REORIENTED. BETWEEN 0515 AND 0545 PATIENT HAD PULLED OUT HIS MIDLINE IV. NO EVIDENCE OF HEMATOMA OR BLEEDING. PATIENT REMAINS ON LASIX GTT AND IS MAKING GOOD URINE OUTPUT. PATIENT'S SON CALLED FOR STATUS UPDATE. VSS
[2020-01-10 08:55] LABS: HEMATOCRIT 23.4 % (42.0-52.0)
[2020-01-10 09:03] LABS: CALCIUM 8.1 mg/dL (8.5-10.1); CREATININE 2.2 mg/dL (0.6-1.3); MAGNESIUM 2.5 mg/dL (1.8-2.4); POTASSIUM 3.9 mmol/L (3.5-5.1)
[2020-01-10 09:09] LABS: ALBUMIN 2.7 g/dL (3.4-5.0); CALCIUM 7.8 mg/dL (8.5-10.1); CREATININE 2.2 mg/dL (0.6-1.3); PHOSPHORUS* 4.5 mg/dL (2.5-4.9); POTASSIUM 3.9 mmol/L (3.5-5.1)
--- NOTE | 2020-01-10 19:36 | NUR ---
PATIENT TELE STATUS. PROGRESSING SOMEWHAT WELL TOWARDS GOALS. POOR APPETITE TODAY, ONLY ATE 2 APPLESAUCES. PULLED OUT MULTIPLE IVS. MITTENS IN PLACE FOR SAFTEY. ON BIPAP FOR SLEEP AT THIS TIME. BED IN LOWEST POSITON, CALL LIGHT IN REACH. MARKETING ASSISTANT MANAGER IN PLACE
[2020-01-11 07:57] LABS: HEMATOCRIT 25.8 % (42.0-52.0); HEMOGLOBIN 8.7 gm/dL (14.0-18.0); MCHC 33.7 g/dL (28.0-37.0); MCV 85.9 fL (80.0-100.0); MPV 9.1 fl. (7.2-11.1); RDW-CV 14.9 % (10.5-14.5); WBC 7.7 thou/uL (4.0-11.0)
[2020-01-11 08:01] VITALS: BP 172/55
--- NOTE | 2020-01-11 08:05 | NUR ---
PATIENT RESTING ON BIPAP ALL NIGHT. STILL IMPULSIVE. TRIES TO PULL AT BIPAP AND IV. ORAL MEDICATION HELD CONCERNING ASPIRATION. VSS. NO SIGNIFICANT EVENTS THIS SHIFT.
[2020-01-11 08:13] LABS: CALCIUM 8.1 mg/dL (8.5-10.1); CREATININE 1.9 mg/dL (0.6-1.3); MAGNESIUM 2.2 mg/dL (1.8-2.4); POTASSIUM 3.4 mmol/L (3.5-5.1)
[2020-01-11 12:01] VITALS: BP 134/79
[2020-01-11 16:10] VITALS: BP 170/57
--- NOTE | 2020-01-11 19:00 | NUR ---
PATIENT PROGRESSED WELL TOWARDS GOALS THIS SHIFT. DID PULL OUT IV AT THE END OF SHIFT BUT WAS ABLE TO REPLACE AND KOBAN THE NEXT ONE. LASIX GTT CONTINUES, GOOD URINE OUTPUT. SON UPDATED ON TRANSFER TO TELE.
--- NOTE | 2020-01-11 19:13 | NUR ---
PATIENT TRANSFERED TO ROOM 212 BY 2 BAND MASTER. ALL BELONGINGS TRANSFERED WITH PATIENT. REPORT GIVEN TO TRACY CLEMONS. ALL QUESTIONS ANSWERED. ALL MEDICATIONS AND CHART AND ISOLATION CHART ALSO SENT WITH PATIENT.
[2020-01-11 20:00] VITALS: BP 187/83
[2020-01-12] VITALS: BP 129/49
[2020-01-12 04:03] VITALS: BP 109/41
--- NOTE | 2020-01-12 06:42 | NUR ---
PT TRANSFERED TO FLOOR AT 1930 FROM ICU. ASSESSMENT COMPLETED AT [facility], PLEASE REFER TO CHARTING. MEDIACTIONS ADMINISTERED PER MAR AND CRUSHED PER ORDER. PT REPORTED C/O PAIN TO BACK, SPOKE WITH PHYSICIAN AND RECIEVED NEW ORDERS FOR PRN PAIN MEDICATIONS. PT HAD NO OTHER CONCERNS AT THIS TIME.
--- NOTE | 2020-01-12 07:15 | NUR ---
CHANGE OF SHIFT BEDSIDE REPORT GIVEN PATIENT SEEN AT BEDSIDE, IN BED ASLEEP ASSUMED PATIENT CARE
[2020-01-12 07:35] LABS: CALCIUM 7.8 mg/dL (8.5-10.1); CREATININE 1.8 mg/dL (0.6-1.3); MAGNESIUM 1.9 mg/dL (1.8-2.4); POTASSIUM 3.1 mmol/L (3.5-5.1)
[2020-01-12 08:00] VITALS: BP 164/46
--- NOTE | 2020-01-12 08:33 | NUR ---
CM asked Dr to place resumption therapy orders, continue to plan to have Pt go to skilled at dc. CM to fax updated clinicals to [facility] once therapies see Pt today. CM asked clinical rehab liaison to have therapies see Pt today, once orders are placed.
[2020-01-12 11:43] VITALS: BP 94/62
--- NOTE | 2020-01-12 15:08 | NUR ---
RIGHT BASILIC VESSEL ACCESSED FOR SINGLE LUMEN POWER PICC. LINE PRE-TRIMMED TO 41 CM AND ADVANCED TO THE ZERO ALETHEA WITH NO RESISTANE MET. UPPER ASRM CIRCUMFERENCE ABOVE INSERTION SITE=13". SHERLOCK MAGNET AND 3CG CONFIRMATION OF TIP TERMINATION AT THE CAVOATRIAL JUCTION APPRECIATED. GUIDE WIRE REMOVED LINE FLUSHED AND INSERTION SITE DRESSED. REPORT GIVEN TO KENYETTA MOLINA.
[2020-01-12 15:10] LABS: BE 6.1 mmol/L (-2 to +3); PO2 107.4 mmHg (75.0-100.0); pH 7.407 (7.340-7.450)
[2020-01-12 15:12] LABS: PCO2 51.4 mmHg (35.0-45.0)
[2020-01-12 15:47] VITALS: BP 96/65
[2020-01-12 20:00] VITALS: BP 130/83; BP 164/67
[2020-01-13] VITALS: BP 150/55
[2020-01-13 04:00] VITALS: BP 155/68
[2020-01-13 07:08] LABS: ABSOLUTE EOSINOPHILS 0.3 thou/uL (0.0-0.7); ABSOLUTE LYMPHOCYTES 1.4 thou/uL (0.8-5.3); ABSOLUTE MONOCYTES 0.7 thou/uL (0.0-1.2); ABSOLUTE NEUTROPHILS 4.5 thou/uL (1.6-8.1); BASOPHILS 0.6 %; HEMATOCRIT 24.4 % (42.0-52.0); HEMOGLOBIN 8.4 gm/dL (14.0-18.0); LYMPHOCYTES 19.9 %; MCH 29.3 pg (26.0-34.0); MCHC 34.5 g/dL (28.0-37.0); MCV 84.9 fL (80.0-100.0); MONOCYTES 9.7 %; MPV 8.4 fl. (7.2-11.1); NUCLEATED RBCS 0 /100WBC; PLATELET COUNT* 238 thou/uL (150-400); POLYS 65.8 %; RBC 2.88 mil/uL (4.50-6.00); RDW-CV 14.7 % (10.5-14.5); WBC 6.8 thou/uL (4.0-11.0)
[2020-01-13 07:18] LABS: CREATININE 1.5 mg/dL (0.6-1.3); MAGNESIUM 2.1 mg/dL (1.8-2.4); POTASSIUM 3.3 mmol/L (3.5-5.1)
[2020-01-13 07:22] LABS: INR 1.1; PROTIME 11.4 Seconds (9.20-11.50)
[2020-01-13 08:00] VITALS: BP 162/63
[2020-01-13 12:30] VITALS: BP 134/48
[2020-01-13 16:52] VITALS: BP 150/60
[2020-01-13 18:25] LABS: CALCIUM 8.2 mg/dL (8.5-10.1); CREATININE 1.7 mg/dL (0.6-1.3); POTASSIUM 4.3 mmol/L (3.5-5.1)
--- NOTE | 2020-01-13 18:35 | NUR ---
ASSUMED PT CARE AT 0715 AM. REPORT RECEIVED FROM NURSE. PT IS ALERT, AWAKE, ORIENTED X4. FOUND ON BIPAP. BIPAP WAS REMOVED AND O2 3 L NC APPLIED. O2 SATURATION IS 99% ON 3 L NC. PT DENIES PAIN. NO FEVER. VSS. SEE CHART. Q2TURN. ACCUCHECK. BROWN PATENT. PT REFUSES TO EAT DINER, SO INSULIN WAS NOT GIVEN. FALL PRECAUTTION IN PLACE. POTASSIUM REPLACED. IV ANTIBIOTICS GIVEN VIA PICC LINE. PICC LINE PATENT. NORMAL BLOOD RETURN. WILL CONTINUE TO MONITOR PT
[2020-01-13 20:00] VITALS: BP 158/68
[2020-01-14] VITALS: BP 150/99
[2020-01-14 04:00] VITALS: BP 116/41
[2020-01-14 06:35] LABS: HEMATOCRIT 24.6 % (42.0-52.0); HEMOGLOBIN 8.2 gm/dL (14.0-18.0); MCH 28.6 pg (26.0-34.0); MCHC 33.3 g/dL (28.0-37.0); MCV 85.8 fL (80.0-100.0); MPV 8.7 fl. (7.2-11.1); NUCLEATED RBCS 0 /100WBC; PLATELET COUNT* 224 thou/uL (150-400); RBC 2.86 mil/uL (4.50-6.00); WBC 7.5 thou/uL (4.0-11.0)
[2020-01-14 07:30] LABS: ALBUMIN 2.5 g/dL (3.4-5.0); CREATININE 1.6 mg/dL (0.6-1.3); MAGNESIUM 2.1 mg/dL (1.8-2.4); PHOSPHORUS* 2.7 mg/dL (2.5-4.9); POTASSIUM 3.4 mmol/L (3.5-5.1); TOTAL BILIRUBIN 0.2 mg/dL (<0.1-1.0); TOTAL PROTEIN 5.9 g/dL (6.4-8.2)
[2020-01-14 07:53] LABS: ABSOLUTE EOSINOPHILS 0.3 thou/uL (0.0-0.7); ABSOLUTE LYMPHOCYTES 1.7 thou/uL (0.8-5.3); ABSOLUTE MONOCYTES 0.2 thou/uL (0.0-1.2); ABSOLUTE NEUTROPHILS 5.3 thou/uL (1.6-8.1); PLATELET ESTIMATE ADEQUATE
[2020-01-14 07:57] VITALS: BP 131/56
[2020-01-14 12:25] VITALS: BP 134/57
--- NOTE | 2020-01-14 14:52 | NUR ---
assumed pt care report received from nurse. pt is aox4 tracing sinus rythm on industrial mechanic. on 3 lnc. pt seems lethargic and is sleeping. only wakes up and open his eyes when touched and when he is asked to. accucheck. hammond catheter in place. right picc line is patent. iv antibiotics given. pt rested a lot this day. bipap on during nap time. pt was ok with bipap. pt has poor appetite. but fod intake was encouraged. renal US done. thoracentesis ordered. bumex dose was changed this am by dr Saini. bumex was given as ordered. then around 1445 , wholesale account executive came in and changed the bumex dose again to the previous dosage. orders placed on [employer] by day camp unit leader. pt is medically stable. denies pain . no further complaint. isolation maintained. will continue to monitor. fall precaution in place. call light at reach
--- NOTE | 2020-01-14 15:35 | NUR ---
LOCO spoke with Pt's son regarding dispo and plan for skilled at the end of the week/over the weekend. Per son, he discussed hospice with Dr and asked to speak with Dr regarding what Dr is presently recommending as far as dispo. Per son, Pt has between 2-3 months to live. CM informed son that Pt is participating with therapies, but ultimately it will be his decision. Discuss dc options with hospice. Dr to call son, CM to reach out to son tomorrow. If plan is skilled, LOCO will fax updated therapy evals to [facility] tomorrow so that they can initiate auth. Loco spoke with Natasha at [facility] and confirmed plans. Following.
[2020-01-14 16:16] LABS: SOURCE PLEURAL FLUID; TOTAL VOLUME 1850 ml
[2020-01-14 16:17] LABS: CLARITY SLIGHTLY CLOUDY
[2020-01-14 16:24] VITALS: BP 135/44
[2020-01-14 17:01] LABS: BF LYMPHOCYTES 9 %; BF MONOCYTES 81 %; BF POLYS 10 %
[2020-01-14 18:11] LABS: BF RBC <1000 /mm3; TOTAL CELL COUNT 232 /mm3
[2020-01-14 22:38] LABS: BE -3.8 mmol/L (-2 to +3); PCO2 45.8 mmHg (35.0-45.0); PO2 93.4 mmHg (75.0-100.0); pH 7.303 (7.340-7.450)
[2020-01-14 22:41] LABS: MCH 29.2 pg (26.0-34.0); MCHC 32.8 g/dL (28.0-37.0); MCV 89.2 fL (80.0-100.0); MPV 9.2 fl. (7.2-11.1); RBC 1.84 mil/uL (4.50-6.00); RDW-CV 14.7 % (10.5-14.5); WBC 10.5 thou/uL (4.0-11.0)
[2020-01-14 22:45] LABS: HEMATOCRIT 16.4 % (42.0-52.0); HEMOGLOBIN 5.4 gm/dL (14.0-18.0)
[2020-01-14 22:55] LABS: CALCIUM 7.2 mg/dL (8.5-10.1); CREATININE 2.3 mg/dL (0.6-1.3)
[2020-01-14 23:00] LABS: MAGNESIUM 2.2 mg/dL (1.8-2.4); TOTAL BILIRUBIN 0.2 mg/dL (<0.1-1.0); TOTAL PROTEIN 4.3 g/dL (6.4-8.2)
--- NOTE | 2020-01-14 23:17 | NUR ---
PT TRANSFERED TO ICU AT 2210 FOR HYPOTENSION AND POSSIBLE SEIZURE ACTIVITY ON TELEMETRY UNIT. STAT LABS AND PORTABLE CHEST XRAY DONE PER PROTOCOL. DR LOREDO NOTIFIED OF HGB 5.4 AND MAP OF 45. RECIEVED ORDERS TO TRANSFUSE BLOOD AND START LEVOPHED TO MAINTAIN MAP > 65.
[2020-01-15] VITALS (146 sets, daily range): BP systolic 42–252; BP diastolic 14–209
[2020-01-15 03:14] LABS: HEMATOCRIT 23.5 % (42.0-52.0); MCH 30.8 pg (26.0-34.0); MCHC 34.3 g/dL (28.0-37.0); MCV 89.8 fL (80.0-100.0); NUCLEATED RBCS 0 /100WBC; PLATELET COUNT* 305 thou/uL (150-400); RBC 2.62 mil/uL (4.50-6.00); RDW-CV 14.6 % (10.5-14.5); WBC 24.1 thou/uL (4.0-11.0)
[2020-01-15 03:15] LABS: HEMOGLOBIN 8.1 gm/dL (14.0-18.0)
[2020-01-15 03:20] LABS: CALCIUM 7.7 mg/dL (8.5-10.1); CREATININE 2.4 mg/dL (0.6-1.3); MAGNESIUM 2.2 mg/dL (1.8-2.4); POTASSIUM 5.4 mmol/L (3.5-5.1)
[2020-01-15 03:44] LABS: ABSOLUTE EOSINOPHILS 0.2 thou/uL (0.0-0.7); ABSOLUTE LYMPHOCYTES 2.2 thou/uL (0.8-5.3); ABSOLUTE MONOCYTES 0.2 thou/uL (0.0-1.2); ABSOLUTE NEUTROPHILS 21.4 thou/uL (1.6-8.1); METAMYELOCYTES 2 %; MYELOCYTES 1 %
[2020-01-15 03:45] LABS: ANISOCYTOSIS 1+; PLATELET ESTIMATE ADEQUATE
[2020-01-15 03:46] LABS: OVALOCYTES 1+
--- NOTE | 2020-01-15 04:15 | NUR ---
AT 0340 PT VOMITED LARGE AMOUNT OF TORRES EMISIS. EMISIS SMELLED LIKE TUBE FEEDING. BIPAP MASK REMOVED, PT SUCTIONED. RT NOTIFIED OF NEED FOR NEW BIPAP MASK AND TUBING, VOMIT INSIDE OF MASK AND TUBING. PT GIVEN COMPLETE BED BATH WITH ALL LINENS CHANGED. PT ALERT AND FOLLOWING SOME COMMANDS. PT NONVERBAL. PT IN HIGH FOWLERS POSITION WITH O2 AT 4 LITERS PER NASAL CANULA. OS SAT 95% AT THIS TIME. LEVOPHED STILL INFUSING TO MQINTAIN MAP > 65.
--- NOTE | 2020-01-15 05:34 | NUR ---
PAGED DR LOREDO FOR WBC 24.1 ON AM LAB VALUES AND URINE OUTPUT 125. PT ALERT THIS AM AND CONVERSING APPROPRIATELY WITH STAFF.
--- NOTE | 2020-01-15 05:36 | NUR ---
ALL PO MEDICATIONS HELD DURING SHIFT. PT NONRESPONSIVE UPON ARRIVAL. PT VOMITED LARGE AMPOUNT OF TORRES EMISIS AT THIS TIME.
[2020-01-15 09:17] LABS: ABSOLUTE BASOPHILS 0.2 thou/uL (0.0-0.2); ABSOLUTE LYMPHOCYTES 2.4 thou/uL (0.8-5.3); ABSOLUTE MONOCYTES 0.3 thou/uL (0.0-1.2); ABSOLUTE NEUTROPHILS 11.9 thou/uL (1.6-8.1); BASOPHILS 1.1 %; EOSINOPHILS 0.3 %; HEMATOCRIT 23.9 % (42.0-52.0); HEMOGLOBIN 7.7 gm/dL (14.0-18.0); LYMPHOCYTES 16.1 %; MCH 29.4 pg (26.0-34.0); MCHC 32.3 g/dL (28.0-37.0); MONOCYTES 1.8 %; MPV 9.6 fl. (7.2-11.1); NUCLEATED RBCS 0 /100WBC; PLATELET COUNT* 354 thou/uL (150-400); POLYS 80.7 %; RBC 2.62 mil/uL (4.50-6.00); WBC 14.7 thou/uL (4.0-11.0)
[2020-01-15 09:39] LABS: CALCIUM 7.4 mg/dL (8.5-10.1); CREATININE 3.1 mg/dL (0.6-1.3)
[2020-01-15 09:40] LABS: POTASSIUM 7.3 mmol/L (3.5-5.1)
[2020-01-15 09:43] LABS: ALBUMIN 2.4 g/dL (3.4-5.0); TOTAL BILIRUBIN 0.3 mg/dL (<0.1-1.0); TOTAL PROTEIN 5.5 g/dL (6.4-8.2)
[2020-01-15 10:16] LABS: BE -9.5 mmol/L (-2 to +3); PCO2 47.1 mmHg (35.0-45.0); PO2 113.5 mmHg (75.0-100.0)
[2020-01-15 11:27] LABS: ABSOLUTE BASOPHILS 0.1 thou/uL (0.0-0.2); ABSOLUTE EOSINOPHILS 0.1 thou/uL (0.0-0.7); ABSOLUTE LYMPHOCYTES 1.7 thou/uL (0.8-5.3); ABSOLUTE MONOCYTES 0.1 thou/uL (0.0-1.2); ABSOLUTE NEUTROPHILS 9.8 thou/uL (1.6-8.1); EOSINOPHILS 0.4 %; LYMPHOCYTES 14.3 %; MCHC 33.1 g/dL (28.0-37.0); MCV 90.9 fL (80.0-100.0); MONOCYTES 0.6 %; MPV 9.3 fl. (7.2-11.1); NUCLEATED RBCS 0 /100WBC; POLYS 83.7 %; RBC 2.02 mil/uL (4.50-6.00); WBC 11.7 thou/uL (4.0-11.0)
[2020-01-15 11:30] LABS: PLATELET COUNT* 255 thou/uL (150-400)
[2020-01-15 11:32] LABS: HEMOGLOBIN 6.1 gm/dL (14.0-18.0)
[2020-01-15 11:33] LABS: HEMATOCRIT 18.4 % (42.0-52.0)
[2020-01-15 11:37] LABS: APTT 29.6 Seconds (25.0-31.3); PROTIME 17.5 Seconds (9.20-11.50)
[2020-01-15 11:41] LABS: INR 1.7
[2020-01-15 11:56] LABS: CALCIUM 7.8 mg/dL (8.5-10.1); CREATININE 3.3 mg/dL (0.6-1.3)
[2020-01-15 11:59] LABS: ALBUMIN 2.6 g/dL (3.4-5.0); TOTAL BILIRUBIN 0.2 mg/dL (<0.1-1.0); TOTAL PROTEIN 4.8 g/dL (6.4-8.2)
--- NOTE | 2020-01-15 12:04 | NUR ---
RIGHT 4 PANAMANIAN SINGLE LUMEN PICC LINE REPLACED WITH 5 PANAMANIAN TRIPLE LUMEN PICC VIA OVER WIRE EXCHANGE. PICC DRESSING REMOVED AND LINE BACKED OUT 15CM WITH CLEAN GLOVES. STERILE FIELD ESTABLISHED AFTER SHERLOCK/3CG APPLIED. 4 PANAMANIAN CATHETER CHLOROPREPPED AND ALLOWED TO DRY FOR 3 MINUTES. LINE CUT WITH STERILE SCALPEL AND STERILE FLOPPY TIPPED STILET INSERTED. EXISTING LINE REMOVED IN SECTIONS AND MICROINTRODUCER INSERTED. STYLET REMOVED WITH INNER CANNULA AND NEW LINE INSERTED AND ADVANCED TO THE ZERO ALETHEA WITH NO RESISTANCE MET. NEW LINE PRE-TRIMMED TO 41CM. UPPER ARM CIRCUMFERENCE ABOVE INSERTION SITE= 13". SHERLOCK MAGNET AND 3CG CONFIRMATION OF TIP TERMINATION AT THE CAVOATRIAL JUNCTION APPRECIATED. GUIDE WIRE REMOVED, LINE FLUSHED AND INSERTION SITE DRESSED. REPORT GIVEN TO DARRION MOLINA.
[2020-01-15 12:12] LABS: BE -7.3 mmol/L (-2 to +3)
[2020-01-15 12:14] LABS: PCO2 60.5 mmHg (35.0-45.0); PO2 134.9 mmHg (75.0-100.0); pH 7.156 (7.340-7.450)
--- NOTE | 2020-01-15 12:17 | EKG ---
[place] [address] ELECTROCARDIOGRAM REPORT Name: DAIANA ROBERSON Room: [address] IN .R.#: [id number] Admission: 12/21/19 Attend Phys: Nereyda Fuentes, Discharge: Date of : 52 Date of Service: 01/14/202150 Report #: [id number] THIS REPORT FOR: //name// [facility] Test Date: 2020-01-14 Test Time: 21:51:06 Pat Name: DAIANA ROBERSON Department: Room: [facility] Gender: M Educational Program Assistant: SARINA : 1950 Requested By: Evaristo Joshi Order Number: [id number] Perez MD: Ryan Miller Measurements Intervals [place] Rate: 82 P: 56 DE: 144 QRS: 21 QRSD: 70 T: 2 QT: 403 QTc: 471 Interpretive Statements Sinus rhythm Probable left atrial enlargement Compared to ECG 12/21/2019 06:45:44 Ventricular premature complex(es) no longer present Electronically Signed On 01-15-2020 12:16:31 CDT by Ryan Miller [email or web address] <ELECTRONICALLY SIGNED> By: Ryan Miller MD, FACC 01/15/20 1216 50 50 Ryan Miller MD, [facility] /EPI
[2020-01-15 13:06] LABS: BE -6.2 mmol/L (-2 to +3)
[2020-01-15 13:07] LABS: PO2 160.8 mmHg (75.0-100.0); pH 7.208 (7.340-7.450)
[2020-01-15 13:13] LABS: HEMATOCRIT 22.1 % (42.0-52.0); HEMOGLOBIN 7.5 gm/dL (14.0-18.0)
[2020-01-15 13:20] LABS: POTASSIUM 4.9 mmol/L (3.5-5.1)
[2020-01-15 13:23] LABS: APTT 29.6 Seconds (25.0-31.3); INR 1.8
--- NOTE | 2020-01-15 20:13 | NUR ---
ASSUMED CARES AT 0700, AT 0725 WENT TO PATIENTS ROOM TO FIND THAT HE WAS GUPPY BREATHING, PALE AND SATS WAS AT 35%. PATIENT WAS ON O2@4L AT THAT TIME AND WAS NOT RESPONDING EVEN TO PAINFUL STUMULI. PATIENT WAS THEN PLACED ON THE BIPAP AND 100% FIO2 WITH LITTLE RECOVERING. DR ALATORRE CALLED AND NO RETURN CALL AT THAT TIME. PAGED DR LOREDO WITHOUT RETURN CALL BECAUSE PATIENT WAS DR MILTON'S PATIENT. PUT OUT PAGE FOR DR MILTON AND CALLED THE ER FOR POSSIBLE INTUBATION. ER DOCTOR CAME OVER TO THE ICU AND IMMEDIATELY INTUBATED THE PATIENT. BY THIS TIME THE BLOOD PRESSURE HAD STARTED TO DROP AND DR MILTON ORDERED PRESSERS. PATIENT ENDED UP BEING MAXED OUT ON [address] CALLED FAMILY TO FIND OUT WHAT THEY WANTED FOR THE PATIENT WHICH WAS TO CONTINUE ALL CARE. DR ALATORRE NOTED A PNUEMO ON THE CHEST X RAY, SURGERY WAS CONSULTED AND CAME TO BED SIDE TO PLACE RIGHT SIDED CHEST TUBE. DR RODAS PLACED THE CHEST TUBE. PATIENT HAD OVER 1200CC DENIZ RED BLOOD DRAIN FROM CHEST TUBE. MASSIVE BLOOD TRANSFUSION PROTOCOL STARTED. ALL BLOOD DOCUMENTED OTHER THAN THE VITAL SIGNS THAT WAS ASSOCIATED WITH IT. [facility]AS AT BEDSIDE THROUGHOUT THE WHOLE TIME. PATIENT THEN CONTINUED TO DECLINE A SECOND CENTRAL LINE WAS PLACED IN THE LEFT GROIN BY DR RODAS. 2 UNITS PRBC, 2 UNITS FFP, 2 UNITS PLATELETS GIVEN PATIENT TOLERATED IT WELL. PATIENT WAS ABLE TO COME COMPLETELY OFF OF THE DEONDRE AND DOWN TO ONLY 5MCG OF LEVO. NEPHROLOGY CAME TO SEE PATIENT AND SPOKE TO PATIENTS SON. PATIENTS SON THEN DECIDED TO GO COMFORT CARE WITH THE PATIENT. ALL LIFE SAVING EFFORTS WAS STOPPED AND PATIENT WAS EXTUBATED AT 1400. PATIENT AT 1435. ALL BELONGINGS WAS SENT TO SECURITY. NO FURTHER CONCERNS AT THIS TIME.
[2020-01-16 13:08] LABS: BODY FLUID LDH 81 IU/L (()); BODY FLUID PROTEIN 2.3 g/dL (())
[2020-01-18 16:19] LABS: SOURCE PLEURAL
--- NOTE | 2020-01-19 14:06 | PATH ---
[address] [address] PATHOLOGY RPT PROCEDURE Name: DAIANA ROBERSON Room: [address] IN .R.#: [id number] Admission: 12/21/19 Date of : 52 Discharge: 01/15/20 Report #: [id number] Path Case #: [id number] Note [facility] Accession Number: [id number] TESTS RESULT FLAG UNITS REF RANGE LAB Clinician Provided Cytology Information No. of containers..01 Other (Miscellaneous) Source: 01 R. PLEURAL DIAGNOSIS: 02 R. PLEURAL NEGATIVE FOR MALIGNANT CELLS. FEW MESOTHELIAL CELLS AND INFLAMMATORY CELLS ARE PRESENT. THIS INTERPRETATION INCLUDES EVALUATION OF A CELL BLOCK. Signed out by: 02 Ralph Guerrero MD, Pathologist NPI- [id number] Performed by: 01 Radha Cowan, Head [employer] ([facility]) Gross description: 01 30 ML, CLOUDY YELLOW, 1 TP 1 CB /LCS 01/15/2020 0533 Local FLAG LEGEND: L-Low Normal,H-High Normal,LL-Alert Low,HH-Alert High <-Panic Low,>-Panic High,A-Abnormal,AA-Critical Abnormal Performed at: 01 [facility] [address] [place] [address] Jeremiah Blanchard MD, [address] [place] [address] [address] [place] [address] Ralph Guerrero MD, Specimen Comment: A courtesy copy of this report has been sent to [phone] Specimen Comment: Report sent to Performed at: 01 [facility] [address], [place], [place] [id number] MD Jeremiah Blanchard MD Phone: [phone]
--- NOTE | 2020-01-22 17:53 | CON ---
[address] [address] CONSULTATION Name: DAIANA ROBERSON Ana Room: [address] IN M.R.#: [id number] Admission: 12/21/19 Attend Phys: Nereyda Fuentes MD Discharge: 01/15/20 Date of : 52 Report #: [id number] THIS REPORT FOR: //name// cc: Romi Diaz MD, Katrina MD ~ THIS REPORT FOR: //name// CC: Romi Fuentes DATE OF SERVICE: 01/15/2020 HISTORY OF PRESENT ILLNESS: This 69-year-old male patient who was seen by me. I discussed the patient with the nurses. This patient had a hemothorax and he was transferred to ICU. There was a question of seizure activity. I talked to the agriscience teacher and looks like this patient was having multiple problems at that time. His potassium was high at 7.3. His sodium was high. His hemoglobin was low and seizure activity was not very clear. He was brought to ICU and he had a tube put out. There was no family member who was here in the ICU. REVIEW OF SYSTEMS: From the record, he had an [id number] hypoxic respiratory failure, congestive heart failure, hemothorax, prior history of fungemia, bipolar disorder, essential tremor and a question of history of seizure, which was not clear. When I saw him, he was not having any active seizure. A 14-point review of system was carried out and this was a relevant 14-point review of system. PAST MEDICAL HISTORY: Positive for respiratory problem. SOCIAL HISTORY: Unavailable. PHYSICAL EXAMINATION: Pretty limited. His eyes were opened. He did not have any reflexes. He was not able to follow simple commands and he had a tube in his chest. His blood pressure was maintained at 153/63, respirations 28, pulse is 93. LABORATORY DATA: His lab was abnormal as described above. He did have a CT scan when it happened. CT scan of the head, mainly demonstrated atrophy. All the exam was attempted, but this was the only exam, which was possible. IMPRESSION: My plan was to do an EEG in this patient and talked to the family more about the seizure. I did not want to start any seizure medications until we have an EEG. I was going to call the patient's son. Subsequently, nurses called me and told me that the family made him comfort care and he is and none of [place] [address] CONSULTATION Name: DAIANA ROBERSON Room: [address]#: [id number] Admission: 12/21/19 Attend Phys: Nereyda Fuentes MD Discharge: 01/15/20 Date of : 52 Report #: [id number] Thank you very much for this referral. <ELECTRONICALLY SIGNED> By: Henry Hauser MD 01/22/20 1753 1632 Henry Hauser MD /uche
== END 2020-01-15 14:35 | DRG 177 ==
LOC: M.ERS 06:12 → M.2W 08:25 → M.ICU 08:25 → M.TBA-ER 08:25 → M.2W 14:51 → M.ICU 01-08 13:03 → M.2W 01-11 19:00 → M.ICU 01-14 22:20
PROVIDERS: Emergency Medicine Emergency Medical Services; Internal Medicine; Internal Medicine Critical Care Medicine; Internal Medicine Nephrology; Registered Nurse; Specialist; ADMIT Internal Medicine; ATTEND Internal Medicine
PROC: B548ZZA Ultrasonography of Superior Vena Cava, Guidance (ICD-10-PCS; principal; 2019-12-21)
PROC: 02HV33Z Insertion of Infusion Device into Superior Vena Cava, Percutaneous Approach (ICD-10-PCS; principal; 2019-12-21)
PROC: 0W9930Z Drainage of Right Pleural Cavity with Drainage Device, Percutaneous Approach (ICD-10-PCS; 2019-12-23)
PROC: 5A09357 Assistance with Respiratory Ventilation, Less than 24 Consecutive Hours, Continuous Positive Airway Pressure (ICD-10-PCS; 2020-01-08)
PROC: 5A09357 Assistance with Respiratory Ventilation, Less than 24 Consecutive Hours, Continuous Positive Airway Pressure (ICD-10-PCS; 2020-01-09)
PROC: 5A09357 Assistance with Respiratory Ventilation, Less than 24 Consecutive Hours, Continuous Positive Airway Pressure (ICD-10-PCS; 2020-01-10)
PROC: 5A09357 Assistance with Respiratory Ventilation, Less than 24 Consecutive Hours, Continuous Positive Airway Pressure (ICD-10-PCS; 2020-01-11)
PROC: 5A09357 Assistance with Respiratory Ventilation, Less than 24 Consecutive Hours, Continuous Positive Airway Pressure (ICD-10-PCS; 2020-01-12)
PROC: 5A09357 Assistance with Respiratory Ventilation, Less than 24 Consecutive Hours, Continuous Positive Airway Pressure (ICD-10-PCS; 2020-01-13)
PROC: 0W993ZZ Drainage of Right Pleural Cavity, Percutaneous Approach (ICD-10-PCS; 2020-01-14)
PROC: 5A09357 Assistance with Respiratory Ventilation, Less than 24 Consecutive Hours, Continuous Positive Airway Pressure (ICD-10-PCS; 2020-01-14)
PROC: 0W9900Z Drainage of Right Pleural Cavity with Drainage Device, Open Approach (ICD-10-PCS; 2020-01-15)
PROC: 5A09357 Assistance with Respiratory Ventilation, Less than 24 Consecutive Hours, Continuous Positive Airway Pressure (ICD-10-PCS; 2020-01-15)
PROC: 02HV33Z Insertion of Infusion Device into Superior Vena Cava, Percutaneous Approach (ICD-10-PCS; 2020-01-15)
PROC: B548ZZA Ultrasonography of Superior Vena Cava, Guidance (ICD-10-PCS; 2020-01-15)
DX: J15.212 Pneumonia due to Methicillin resistant Staphylococcus aureus (principal); J96.21 Acute and chronic respiratory failure with hypoxia; I50.33 Acute on chronic diastolic (congestive) heart failure; J96.22 Acute and chronic respiratory failure with hypercapnia; N17.0 Acute kidney failure with tubular necrosis; J91.8 Pleural effusion in other conditions classified elsewhere; I31.3 Pericardial effusion (noninflammatory); N18.4 Chronic kidney disease, stage 4 (severe); E44.0 Moderate protein-calorie malnutrition; B49 Unspecified mycosis; G93.40 Encephalopathy, unspecified; J94.2 Hemothorax; D62 Acute posthemorrhagic anemia; I13.0 Hypertensive heart and chronic kidney disease with heart failure and stage 1 through stage 4 chronic kidney disease, or unspecified chronic kidney disease; J69.0 Pneumonitis due to inhalation of food and vomit; Z20.828 Contact with and (suspected) exposure to other viral communicable diseases; F32.9 Major depressive disorder, single episode, unspecified; F41.9 Anxiety disorder, unspecified; I25.10 Atherosclerotic heart disease of native coronary artery without angina pectoris; E11.22 Type 2 diabetes mellitus with diabetic chronic kidney disease; G47.10 Hypersomnia, unspecified; F03.90 Unspecified dementia, unspecified severity, without behavioral disturbance, psychotic disturbance, mood disturbance, and anxiety; G25.0 Essential tremor; G40.909 Epilepsy, unspecified, not intractable, without status epilepticus; E78.5 Hyperlipidemia, unspecified; I35.1 Nonrheumatic aortic (valve) insufficiency; Z51.5 Encounter for palliative care; E11.51 Type 2 diabetes mellitus with diabetic peripheral angiopathy without gangrene; J15.6 Pneumonia due to other Gram-negative bacteria; R53.81 Other malaise; E66.9 Obesity, unspecified; D63.8 Anemia in other chronic diseases classified elsewhere; K74.60 Unspecified cirrhosis of liver; B37.9 Candidiasis, unspecified; E87.5 Hyperkalemia; R57.8 Other shock; Z86.73 Personal history of transient ischemic attack (TIA), and cerebral infarction without residual deficits; Z89.511 Acquired absence of right leg below knee; Z79.82 Long term (current) use of aspirin; Z68.30 Body mass index [BMI] 30.0-30.9, adult; Z88.6 Allergy status to analgesic agent; Z79.899 Other long term (current) drug therapy; Z88.8 Allergy status to other drugs, medicaments and biological substances; Z66 Do not resuscitate; G47.9 Sleep disorder, unspecified